=== PATIENT | female | born 1935 | race Caucasian/White ===

== ENCOUNTER → 2016-05-25 | Outpatient (CLI) | payer MEDICARE, OTHER ==
--- NOTE | 2016-05-25 11:37 | MAM ---
History: Well woman exam. Date of exam: 05/25/2016 Services provided: Bilateral full field digital screening mammography. CAD, the images were reviewed with R2 computer aided detection. FINDINGS: Glandular tissue is scattered glandular contour. Comparison with 2014 exam. No dominant mass, architectural distortion or clustered microcalcification. IMPRESSION: Benign exam Recommendation: Routine annual mammography BIRAD CATEGORY: 2 BENIGN Electronically signed by: Adelita Perez MD 05/25/2016 11:35 AM CDT
== END | disposition home or self-care (01) ==
LOC: MAMMO 08:22
PROVIDERS: ATTEND Family Medicine
DX: Z12.31 Encounter for screening mammogram for malignant neoplasm of breast (principal)

== ENCOUNTER 2016-06-19 09:03 | Emergency (ER) | payer MEDICARE, OTHER ==
[2016-06-19 09:26] VITALS: TEMP 97.3
--- NOTE | 2016-06-19 09:34 | ED.PDOC ---
History of Present Illness - General Chief Complaint: Back Pain or Injury Stated Complaint: back pain Time Seen by Provider: 06/19/16 09:18 Source: patient, RN notes reviewed, Vital Signs reviewed Exam Limitations: no limitations - History of Present Illness Initial Comments: Patient comes in with c/o low back pain. 1 week ago she had a seizure, she has a known seizure disorder, and hurt her back when she fell. The pain started in the center of her low back but now is getting worse and spreading out towards her hips. The pain is worse with bending over and laying down. She can't bend down and tie her shoes due to the pain. The pain is sharp. No weakness or numbness. No difficulty walking. No bowel or bladder incontinence. Timing/Duration: 1 week, getting worse Quality/Severity: moderate, sharpness Back Pain Location: lumbar spine, paraspinous muscles Method of Injury/Prior Injury: fell Improving Factors: nothing Worsening Factors: movement Associated Symptoms: lower back pain Allergies/Adverse Reactions: Allergies Codeine Allergy (Verified 06/19/16 09:26) Home Medications: Ambulatory Orders ALPRAZolam [Xanax] 0.5 mg PO BEDTIME 05/24/14 Aspirin [Aspirin Childrens] 81 mg PO DAILY 05/24/14 Calcium Carbonate-Cholecalcife [Calcium 500+D 500-400 mg-Unit] 1 tab PO DAILY Divalproex Sodium [Depakote] 250 mg PO TID 05/24/14 Meloxicam 7.5 mg PO DAILY 05/24/14 Probiotic Product [Probiotic] 1 tab PO DAILY 05/24/14 Ranitidine HCl 300 mg PO DAILY 05/24/14 Thiothixene 1 mg PO DAILY 05/24/14 Simvastatin [Zocor] 20 mg PO DAILY 06/19/16 Review of Systems - Review of Systems Constitutional: States: no symptoms reported Respiratory: States: no symptoms reported Cardiology: States: no symptoms reported Gastrointestinal/Abdominal: States: no symptoms reported Genitourinary: States: no symptoms reported Musculoskeletal: States: see HPI, back pain Skin: States: no symptoms reported Neurological: States: no symptoms reported, seizure. Denies: numbness, paresthesia, pre-existing deficit, tingling, weakness All other Systems: No Change from Baseline Past Medical History (General) - Patient Medical History Hx Seizures: Yes - "Not for years" Hx Stroke: No Hx Dementia: No Hx Asthma: No Hx of COPD: No Hx Cardiac Disorders: No Hx Congestive Heart Failure: No Hx Pacemaker: No Hx Hypertension: No Hx Thyroid Disease: No Hx Diabetes: No Hx Gastroesophageal Reflux: Yes Hx Renal Disease: No Hx Cancer: No Hx of HIV: No Hx Hepatitis C: No Hx MRSA: No Surgical History: cholecystectomy, Hysterectomy, other - Vaccination History Hx Tetanus, Diphtheria Vaccination: No Hx Influenza Vaccination: No Hx Pneumococcal Vaccination: No - Social History Hx Tobacco Use: No Hx Alcohol Use: No Hx Substance Use: No Hx Substance Use Treatment: No Hx Depression: No - Activities of Daily Living Hospice Agency (if applicable):: None - Female History Patient is a Female of Child Bearing Age (10 -59 yrs old): No Patient : No Family Medical History - Family History Mother Family History: No Known Living Status: Age at (years of age): 54 Cause of : colon CA Hx Family Cancer: Yes Physical Exam - Physical Exam General Appearance: Alert, Comfortable, No apparent distress, Well Developed, Well Groomed, Well Hydrated, Well Nourished Neck Exam: non-tender, full range of motion, normal alignment, normal inspection Back Exam: no CVA tenderness, no vertebral tenderness, decreased range of motion - due to pain, muscle spasm - Bilateral lower lumbar R>L Extremity Exam: no evidence of injury, normal range of motion, non-tender, no pedal edema Neurologic: no motor/sensory deficits, alert, normal mood/affect, oriented x 3 Skin Exam: normal color, warm/dry Comments: Vital Signs - 24 hr 06/19/16 09:10 Temperature 97.3 F L Pulse Rate [ 59 L pulse ox] Respiratory 20 Rate Blood Pressure 147/75 [Left Arm] O2 Sat by Pulse 97 Oximetry Progress - Progress Progress: 06/19/16 10:09 Discussed with patient trying a muscle relaxer while waiting for radiology report. If it helps I can write her a script for it at home. She is agreeable. 06/19/16 10:59 Patient is doing well. She is not interested in an Rx for home. She also is not interested in doing anything about her compression fracture. It probably occurred 8 days ago. She is neurologically intact. She wants to just use Tylenol at home as needed for pain. - EKG/XRAY/CT XRAY: L spine: Mod sized compression fracture of L2, age indeterminate per radiologist Departure - Departure Clinical Impression: Compression fracture of second lumbar vertebra Time of Disposition: 11:01 Disposition: Discharge to Home or Self Care Condition: Good Departure Forms: ED Discharge - Pt. Copy, Patient Portal Self Enrollment Instructions: DI for Vertebral Fracture Diet: resume usual diet Activity: increase activity as tolerated Referrals: Devaughn Malcolm MD [Primary Care Provider] - 1-2 Weeks Home Medications: Ambulatory Orders ALPRAZolam [Xanax] 0.5 mg PO BEDTIME 05/24/14 Aspirin [Aspirin Childrens] 81 mg PO DAILY 05/24/14 Calcium Carbonate-Cholecalcife [Calcium 500+D 500-400 mg-Unit] 1 tab PO DAILY Divalproex Sodium [Depakote] 250 mg PO TID 05/24/14 Meloxicam 7.5 mg PO DAILY 05/24/14 Probiotic Product [Probiotic] 1 tab PO DAILY 05/24/14 Ranitidine HCl 300 mg PO DAILY 05/24/14 Thiothixene 1 mg PO DAILY 05/24/14 Simvastatin [Zocor] 20 mg PO DAILY 06/19/16
[2016-06-19] MEDS ORDERED: CYCLOBENZAPRINE HCL 5 MG TAB PO ONE (10:06)
--- NOTE | 2016-06-19 10:13 | RAD ---
PROCEDURE: Lumbar Spine 3 Views Clinical History: pain s/p fall 1 week ago Indication: Same as above Comparison: CT of the abdomen and pelvis done on 10/25/2014 . Technique: 3.0 views of the lumbar spine were done. Findings: There is generalized osteopenia of the bones. There is moderate size compression deformity involving the L2 vertebra, age indeterminate, the acuteness of which can be better assessed on an MRI examination There is no evidence of spondylolisthesis in the lumbosacral spine. There is reduction in the intervertebral disc space height at L5/S1 level There is levoscoliotic curvature of the lumbar spine The thoracolumbar and the lumbosacral junction are intact. The visualized portions of the bilateral sacroiliac joints are unremarkable. The paravertebral soft tissues are radiographically unremarkable. The posterior elements are normal. There is no visualization of any radiopaque foreign bodies in the soft tissues. The findings were discussed with Dr. Hawkins, from the ER service at 10:12 AM Impression: There is generalized osteopenia of the bones. There is moderate size compression deformity involving the L2 vertebra, age indeterminate, the acuteness of which can be better assessed on an MRI examination Location of Interpretation: Teleradiology Electronically signed by: Cyrus Bauman MD 06/19/2016 10:13 AM CDT
[2016-06-19 11:11] VITALS: BP 148/75; O2SAT 100
== END 2016-06-19 11:12 | disposition home or self-care (01) ==
LOC: ER 09:03
DX: S32.029A Unspecified fracture of second lumbar vertebra, initial encounter for closed fracture (principal); K21.9 Gastro-esophageal reflux disease without esophagitis; G40.909 Epilepsy, unspecified, not intractable, without status epilepticus; Z79.899 Other long term (current) drug therapy; Z88.6 Allergy status to analgesic agent; Z79.82 Long term (current) use of aspirin; W19.XXXA Unspecified fall, initial encounter; Y92.009 Unspecified place in unspecified non-institutional (private) residence as the place of occurrence of the external cause

== ENCOUNTER → 2016-08-23 | Outpatient (CLI) | payer MEDICARE, OTHER | LOC: GMAH 10:24 | PROVIDERS: ATTEND Family Medicine | DX: E78.2 Mixed hyperlipidemia (principal) ==

== ENCOUNTER → 2016-09-02 | Outpatient (CLI) | payer MEDICARE, OTHER ==
--- NOTE | 2016-09-05 09:04 | US ---
EXAM DESCRIPTION: Extremity,Lower Vasyl Arteries CLINICAL HISTORY: 80 years Female, ATHEROSCLEROSIS OF [place] ARTERIES OF EXT WITH INTERMITTENT ANASTASIIA COMPARISON: None. TECHNIQUE: Bilateral arterial lower extremity duplex examination with grayscale, color Doppler, and spectral pulse Doppler evaluation. FINDINGS: On the right widely patent vessels with normal velocities and normal triphasic flow is noted in the common femoral and multiple locations in the right superficial femoral artery with the flow becoming biphasic flow noted at the popliteal artery with mildly dampened peak velocities of 45 cm/s but no high-grade stenosis identified. Normal biphasic flow in normal velocities in the peroneal and posterior tibial artery are noted with dampened velocities but normal-appearing biphasic flow in the dorsalis pedis vessel. Infrapopliteal anterior tibial and dorsalis pedis disease with a normal flow pattern in the posterior tibial is suspected. On the left, a normal-appearing vessel with triphasic flow in normal velocities at the common femoral and triphasic flow in the superficial femoral artery with normal velocities in multiple locations is present and preserved through the popliteal. Biphasic flow in the peroneal and dorsalis pedis artery with dampened velocities in the dorsalis pedis is present with normal triphasic waveform evident in the posterior tibial artery with normal velocities of 84 cm/s. IMPRESSION: 1. Dampened velocities but relatively normal appearing biphasic flow in each dorsalis pedis vessel suggesting infrapopliteal stenotic disease in this distribution but normal flow and velocities in the posterior tibial artery on each side. 2. No evidence of inflow disease with normal triphasic flow to the distal SFA on the right and the popliteal artery on the left. Electronically signed by: Rodolfo Alejandro MD 09/05/2016 9:02 AM CDT
--- NOTE | 2016-09-05 09:06 | US ---
EXAM DESCRIPTION: Venous,Lower Extremity RT CLINICAL HISTORY: EDEMA COMPARISON: None Available. TECHNIQUE: Right lower extremity venous duplex FINDINGS: There is no DVT identified. There is normal color flow observed with good flow augmentation. All deep veins compress normally. IMPRESSION: Negative for DVT Electronically signed by: Rodolfo Alejandro MD 09/05/2016 9:04 AM CDT
--- NOTE | 2016-09-05 09:07 | US ---
EXAM DESCRIPTION: Venous,Lower Extremity LT CLINICAL HISTORY: EDEMA COMPARISON: None Available. TECHNIQUE: Left lower extremity venous duplex FINDINGS: There is no DVT identified. There is normal color flow observed with good flow augmentation. All deep veins compress normally. IMPRESSION: Negative for DVT Electronically signed by: Rodolfo Alejandro MD 09/05/2016 9:06 AM CDT
== END | disposition home or self-care (01) ==
LOC: US 08:07
PROVIDERS: ATTEND Family Medicine
DX: R60.9 Edema, unspecified (principal); I70.213 Atherosclerosis of native arteries of extremities with intermittent claudication, bilateral legs

== ENCOUNTER → 2016-09-27 | Outpatient (CLI) | payer MEDICARE, OTHER ==
--- NOTE | 2016-09-27 14:44 | US ---
EXAM DESCRIPTION: Thyroid CLINICAL HISTORY: 80 years Female, ABN THYROID FUNCTION COMPARISON: None. FINDINGS: Thyroid gland is symmetric and small and normal in size with the right lobe 3.8 x 1.5 x 1.5 cm and the left lobe 3.8 x 1.4 x 1.7 cm with the isthmus 2 mm in thickness. Gland is slightly heterogeneous with multiple bilateral hypoechoic nodules noted. On the right a hypoechoic 6 x 5 x 4 mm nodule in the lower pole with a solitary focal 2 mm echogenic nodule internally is present consistent with a small hypoechoic nodule. Additional 4 x 4 by 3 mm nodule in the mid right lobe of the thyroid that is hypoechoic is noted. On the left, a wider than tall 7 x 6 x 5 mm cyst in the mid thyroid is noted. No additional hypoechoic nodule in the lower pole measuring 6 x 4 x 5 mm is present and nonspecific. No dominant masses are noted. IMPRESSION: Normal-sized thyroid with small less than 1 cm hypoechoic nodules and cysts bilaterally that require no further workup at this time. Electronically signed by: Rodolfo Alejandro MD 09/27/2016 2:43 PM CDT
== END | disposition home or self-care (01) ==
LOC: US 08:09
PROVIDERS: ATTEND Family Medicine
DX: R94.6 Abnormal results of thyroid function studies (principal)

== ENCOUNTER → 2016-12-07 | Outpatient (CLI) | payer MEDICARE, OTHER | LOC: GMAH 15:03 | PROVIDERS: ATTEND Family Medicine | DX: R56.9 Unspecified convulsions (principal) ==

== ENCOUNTER → 2017-06-19 | Outpatient (CLI) | payer MEDICARE, OTHER | LOC: GMAH 10:59 | PROVIDERS: ATTEND Family Medicine | DX: R56.9 Unspecified convulsions (principal) ==

== ENCOUNTER → 2017-10-17 | Outpatient (CLI) | payer MEDICARE, OTHER | LOC: GMAH 10:53 | PROVIDERS: ATTEND Family Medicine | DX: R53.1 Weakness (principal) ==

== ENCOUNTER 2017-12-04 16:46 | Emergency (ER) | payer MEDICARE, OTHER ==
[2017-12-04] MEDS ORDERED: POTASSIUM CHLORIDE ELIXIR 20 MEQ/15 ML UD PO ONE (17:38)
--- NOTE | 2017-12-04 17:55 | RAD ---
EXAM DESCRIPTION: Abdomen Series CLINICAL HISTORY: nvd, dizziness COMPARISON: CT the abdomen dated 15 January 2016 TECHNIQUE: PA chest with supine and upright views of the abdomen] FINDINGS: The lungs are clear. The heart is normal size. There is an unremarkable bowel gas pattern. There is no mass or calculus. Markers from a left lower quadrant hernia repair observed IMPRESSION: Left lower quadrant hernia repair otherwise unremarkable abdomen. Electronically signed by: Justen Lyles MD 12/04/2017 5:54 PM CDT
--- NOTE | 2017-12-04 18:06 | CT ---
PROCEDURE: Head CLINICAL HISTORY: 81 years Female nvd, dizziness, afib new COMPARISON: 11/02/2015. TECHNIQUE: Contiguous axial images obtained through the brain without IV contrast. This exam was performed according to our department optimization program which includes automated exposure control, adjustment of the mA and/or kv according to patient size and/or use of iterative reconstruction technique. FINDINGS: The ventricles and sulci are prominent consistent with atrophic changes. No mass lesions. No acute hemorrhage. Atherosclerotic calcifications. Mild microvascular ischemic changes. No fluid or significant mucosal thickening in the visualized paranasal sinuses. No depressed calvarial fractures. IMPRESSION: No acute intracranial abnormality is identified. If there is clinical concern for the possibility of acute ischemic change, MRI could be obtained to better evaluate. Electronically signed by: Tomi Chacko MD 12/04/2017 6:05 PM CDT
--- NOTE | 2017-12-04 19:14 | CT ---
EXAM DESCRIPTION: CTA Chest CLINICAL HISTORY: 81 years, Female, ddimer, new afib, sob COMPARISON: None. TECHNIQUE: Axial images through the chest were performed after the administration of intravenous contrast using a pulmonary embolus protocol. MIPS were performed. This exam was performed according to our departmental dose-optimization program which includes use of Automated Exposure Control, adjustment of the mA and/or kV according to patient size and/or use of iterative reconstruction technique. FINDINGS: No pulmonary embolus is identified. Nonaneurysmal aorta with scattered atherosclerotic calcifications. No pericardial effusion. No pleural effusion. Subsegmental atelectasis within the dependent lungs. No focal lung consolidation. No pneumothorax. Patent central airway. Soft tissues are unremarkable. No acute osseous findings. No acute abnormality within the visualized upper abdomen. IMPRESSION: No pulmonary embolus. Electronically signed by: Willy Durand MD 12/04/2017 7:12 PM CDT
--- NOTE | 2017-12-04 19:33 | CT ---
EXAM DESCRIPTION: Abdomen/Pelvis w/Contrast CLINICAL HISTORY: 81 years Female abd pain, hypotension, hx diverticulitis COMPARISON: None. TECHNIQUE: Contiguous axial images obtained through the abdomen and pelvis following IV contrast. Reformatted images obtained. This exam was performed according to our department optimization program which includes automated exposure control, adjustment of the mA and/or kv according to patient size and/or use of iterative reconstruction technique. FINDINGS: The study is slightly suboptimal from motion artifact and from the patient's overlying arms. Minimal scarring/atelectasis at the lung bases. The liver appears unremarkable. The spleen and pancreas appear unremarkable. No adrenal masses. Small renal cysts. No hydronephrosis. The gallbladder is visualized. Atherosclerotic calcifications. No aneurysmal dilatation of the aorta. No bowel obstruction. The appendix appears unremarkable. Colonic diverticulosis. No free pelvic fluid. Sorto catheter in the urinary bladder. Changes from hernia repair in the left lower abdomen. Mild scoliosis in the lumbar spine convex left. Degenerative changes in the spine. Old appearing compression fracture at the L2 level. IMPRESSION: No acute intra-abdominal abnormality is identified. Electronically signed by: Tomi Chacko MD 12/04/2017 7:32 PM CDT
[2017-12-04] MEDS ORDERED: METOPROLOL TARTRATE 25 MG TAB PO ONE (19:50)
[2017-12-04] MEDS ORDERED: DIVALPROEX SODIUM 250 MG TAB PO ONE (19:51)
[2017-12-04] MEDS ORDERED: ALPRAZolam 0.25 MG TAB PO ONE (19:51)
[2017-12-04] MEDS ORDERED: PROMETHAZINE HCL INJ 12.5 MG in SODIUM CHLORIDE 0.9% 50ML 50 ML IVPB ONE (19:56)
[2017-12-04] MEDS ORDERED: PROMETHAZINE HCL INJ 25 MG/ML VIAL ONE (19:57)
[2017-12-04] MEDS ORDERED: SODIUM CHLORIDE 0.9% 50ML 50 ML ONE (19:58)
--- NOTE | 2017-12-04 20:23 | ED.PDOC ---
History of Present Illness - General Chief Complaint: General Stated Complaint: weakness, n/v/d Time Seen by Provider: 12/04/17 16:58 Source: patient Exam Limitations: no limitations - History of Present Illness Initial Comments: the patient is an 81-year-old female presenting to the emergency room secondary to approximately 9 hours of nausea and vomiting related to severe dizziness. Dizziness with abrupt onset. No blood or bile in the vomitus. She did have 2 episodes of mild diarrhea without blood later in the day. There are no focal neurological deficits otherwise. She does not appear to have abnormal nystagmus but does get very dizzy with any head movement and looking around. Family reports that her speech is a little slower than normal. No difficulties with swallowing. Speech is clear. She knows where she is in what is going on. No fevers. No abdominal pain. She does feel a little bit short of breath. She is not hurting anywhere. She is not having any chest pain or palpitations. She has not passed out. She has no known history of any coronary artery disease or arrhythmia. initially upon arrival the patient's blood pressures were in the 90s over 40s. Her normals around 110/60. This did correct with 1 L of IV fluids. The patient was initially pale which should also improve with improved perfusion. Initial heart rates are in the 120s.the patient reported having some mild abdominal pain a couple of days ago down in her left lower quadrant. She has had a hernia repaired there before and has also had diverticulitis before. She is not really having pain today. Timing/Duration: other - 9 hours Severity: severe Improving Factors: nothing Worsening Factors: movement Associated Symptoms: malaise, nausea/vomiting Allergies/Adverse Reactions: Allergies Codeine Allergy (Verified 12/04/17 17:22) Home Medications: Ambulatory Orders ALPRAZolam [Xanax] 0.5 mg PO BEDTIME 05/24/14 Aspirin [Aspirin Childrens] 81 mg PO DAILY 05/24/14 Calcium Carbonate-Cholecalcife [Calcium 500+D 500-400 mg-Unit] 1 tab PO DAILY Divalproex Sodium [Depakote] 250 mg PO TID 05/24/14 Meloxicam 7.5 mg PO DAILY 05/24/14 Probiotic Product [Probiotic] 1 tab PO DAILY 05/24/14 Ranitidine HCl 300 mg PO DAILY 05/24/14 Thiothixene 1 mg PO DAILY 05/24/14 Simvastatin [Zocor] 20 mg PO DAILY 06/19/16 Lansoprazole [Prevacid] 20 mg PO DAILY 12/04/17 Multiple Vitamins W/ Minerals [Multi For Her 50+] 1 cap PO DAILY 12/04/17 Review of Systems - Review of Systems Constitutional: States: malaise EENTM: States: no symptoms reported Respiratory: States: short of breath - mild Cardiology: States: no symptoms reported Gastrointestinal/Abdominal: States: diarrhea, nausea, vomiting Genitourinary: States: no symptoms reported Musculoskeletal: States: no symptoms reported Skin: States: no symptoms reported Neurological: States: see HPI, anxiety Endocrine: States: no symptoms reported All other Systems: No Change from Baseline Past Medical History (General) - Patient Medical History Hx Seizures: Yes - "Not for years" Hx Stroke: No Hx Dementia: No Hx Asthma: No Hx of COPD: No Hx Cardiac Disorders: No Hx Congestive Heart Failure: No Hx Pacemaker: No Hx Hypertension: No Hx Thyroid Disease: Yes Hx Diabetes: Yes Hx Gastroesophageal Reflux: Yes Hx Renal Disease: No Hx Cancer: No Hx of HIV: No Hx Hepatitis C: No Hx MRSA: No - Vaccination History Hx Tetanus, Diphtheria Vaccination: No Hx Influenza Vaccination: No Hx Pneumococcal Vaccination: No - Social History Hx Tobacco Use: No Hx Alcohol Use: No Hx Substance Use: No Hx Substance Use Treatment: No Hx Depression: No - Female History Patient : No Family Medical History - Family History Mother Family History: No Known Living Status: Age at (years of age): 54 Cause of : colon CA Hx Family Cancer: Yes Physical Exam - Physical Exam General Appearance: Alert, Anxious, Frail, Ill Appearing Eye Exam: bilateral normal Ears, Nose, Throat: normal pharynx, other - chronic decreased hearing bilaterally. She does wear hearing aids. 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, alert, oriented x 3 Skin Exam: pallor Comments: Vital Signs - 24 hr 12/04/17 12/04/17 12/04/17 16:37 16:45 19:37 Temperature 97.8 F Pulse Rate [ 112 H 110 H right brachial] Respiratory 20 20 16 Rate Blood Pressure 90/49 128/78 [right brachial ] O2 Sat by Pulse 98 99 Oximetry 12/04/17 20:16 Temperature 96.7 F L Pulse Rate [ 116 H right brachial] Respiratory 16 Rate Blood Pressure 131/80 [right brachial ] O2 Sat by Pulse 100 Oximetry Progress - Progress Progress: 12/04/17 20:31 patient's an 81-year-old female presenting to the emergency room with what appears to be vertigo inducing nausea and vomiting. Source of the vertigo is in question. HINTS exam is unable to localize source to a peripheral etiology. The finding of new A. fib with RVR does increase the possibility of a posterior circulation stroke as a source of the vertigo. head CT without contrast was negative. She was mildly to moderately dehydrated upon arrival. She has received a liter of IV fluids and her blood pressures have corrected. She has received a dose of metoprolol to help lower the heart rate. She is feeling better but still has significant vertigo. She has received a dose of Phenergan which has helped some. The patient is receiving 1 dose of Lovenox for anticoagulation at this point. The patient did have a CT scan of the abdomen to help rule out a diverticulitis flare as contributing to the nausea and vomiting and she also had a CT angiogram of the chest to help rule out a pulmonary embolus given that she has new atrial fibrillation and an elevated d- dimer as well as a subjective mild shortness of breath. Both studies were essentially negative. The patient is being transferred for higher level of care for cardiology and neurology evaluation. She has also received an aspirin as well as her evening dose of Depakote and Xanax. she received a dose of oral potassium as well. 12/04/17 20:37 - Results/Orders Results/Orders: EKG shows atrial fibrillation with RVR at [address] or T wave changes consistent with immediate ischemia. She does have right axis deviation. QT interval is borderline prolonged. CT scan of the head without contrast felt show any acute pathology. CT angiogram of the chest with PE protocol feels show any significant pulmonary embolus or aortic pathology. CT of the abdomen and pelvis failed to show any other source for the nausea and vomiting. No diverticulitis. Laboratory Tests 12/04/17 12/04/17 12/04/17 16:42 16:42 16:42 WBC 7.1 RBC 4.68 Hgb 15.1 Hct 45.3 MCV 96.7 MCH 32.2 H MCHC 33.5 RDW 13.3 Plt Count 199 MPV 9.8 Absolute Neuts (auto) 5.70 Absolute Lymphs (auto) 1.00 Absolute Monos (auto) 0.40 Absolute Eos (auto) 0.00 Absolute Basos (auto) 0.00 Neutrophils % 80.1 H Lymphocytes % 14.0 L Monocytes % 5.5 Eosinophils % 0.1 L Basophils % 0.3 PT 9.4 INR 0.94 PTT (SP) 21.8 D-Dimer, Quantitative 0.73 H* Sodium 139 Potassium 3.2 L Chloride 101 Carbon Dioxide 24 Anion Gap 17.2 BUN 19 H Creatinine 0.74 BUN/Creatinine Ratio 25.7 H Random Glucose 155 H Serum Osmolality 282.9 Lactic Acid Calcium 10.0 Magnesium 1.9 Total Bilirubin 0.5 AST 28 ALT 16 Alkaline Phosphatase 65 Creatine Kinase 90 CK-MB (CK-2) 4.3 CK-MB (CK-2) % Not Reportable Troponin I < 0.02 B-Natriuretic Peptide 128.0 H Serum Total Protein 8.0 Albumin 4.2 Globulin 3.8 H Albumin/Globulin Ratio 1.1 Amylase 32 Lipase 23 TSH 2.50 Urine Color Urine Appearance Urine pH Ur Specific [place] Urine Protein Urine Glucose (UA) Urine Ketones Urine Blood Urine Nitrite Urine Bilirubin Urine Urobilinogen Ur Leukocyte Esterase Urine RBC Urine WBC Ur Epithelial Cells Amorphous Sediment Urine Bacteria 12/04/17 12/04/17 17:11 18:33 WBC RBC Hgb Hct MCV MCH MCHC RDW Plt Count MPV Absolute Neuts (auto) Absolute Lymphs (auto) Absolute Monos (auto) Absolute Eos (auto) Absolute Basos (auto) Neutrophils % Lymphocytes % Monocytes % Eosinophils % Basophils % PT INR PTT (SP) D-Dimer, Quantitative Sodium Potassium Chloride Carbon Dioxide Anion Gap BUN Creatinine BUN/Creatinine Ratio Random Glucose Serum Osmolality Lactic Acid 2.2 Calcium Magnesium Total Bilirubin AST ALT Alkaline Phosphatase Creatine Kinase CK-MB (CK-2) CK-MB (CK-2) % Troponin I B-Natriuretic Peptide Serum Total Protein Albumin Globulin Albumin/Globulin Ratio Amylase Lipase TSH Urine Color Yellow Urine Appearance Sl cloudy Urine pH 8.0 H Ur Specific [place] 1.015 Urine Protein Negative Urine Glucose (UA) Negative Urine Ketones 40 H Urine Blood Small H Urine Nitrite Negative Urine Bilirubin Negative Urine Urobilinogen 0.2 Ur Leukocyte Esterase Negative Urine RBC 1-3 Urine WBC 0 Ur Epithelial Cells 0-1 Amorphous Sediment 1+ Urine Bacteria 0 Departure - Departure Clinical Impression: Vertigo, Dehydration, Atrial fibrillation with RVR, Hypokalemia Disposition: Transfer to Hospital Referrals: Devaughn Malcolm MD [Primary Care Provider] - 1-2 Weeks Home Medications: Ambulatory Orders ALPRAZolam [Xanax] 0.5 mg PO BEDTIME 05/24/14 Aspirin [Aspirin Childrens] 81 mg PO DAILY 05/24/14 Calcium Carbonate-Cholecalcife [Calcium 500+D 500-400 mg-Unit] 1 tab PO DAILY Divalproex Sodium [Depakote] 250 mg PO TID 05/24/14 Meloxicam 7.5 mg PO DAILY 05/24/14 Probiotic Product [Probiotic] 1 tab PO DAILY 05/24/14 Ranitidine HCl 300 mg PO DAILY 05/24/14 Thiothixene 1 mg PO DAILY 05/24/14 Simvastatin [Zocor] 20 mg PO DAILY 06/19/16 Lansoprazole [Prevacid] 20 mg PO DAILY 12/04/17 Multiple Vitamins W/ Minerals [Multi For Her 50+] 1 cap PO DAILY 12/04/17 Transfer to Outside Facility - Transfer Information Accepting Provider:: dr graham Accepting Facility: [facility] Reason for Transfer: required specialist not available
[2017-12-04] MEDS ORDERED: ENOXAPARIN SODIUM 100 MG/ML SYG SUBCU ONE (20:36)
[2017-12-04 21:03] VITALS: BP 139/89; O2SAT 97
[2017-12-04 22:17] VITALS: TEMP 97.7
== END 2017-12-04 21:45 | disposition short-term general hospital (02) ==
LOC: ER 16:46
DX: E86.0 Dehydration (principal); E87.6 Hypokalemia; R00.0 Tachycardia, unspecified; R42 Dizziness and giddiness; I48.91 Unspecified atrial fibrillation; R11.2 Nausea with vomiting, unspecified; E07.9 Disorder of thyroid, unspecified; E11.9 Type 2 diabetes mellitus without complications; K21.9 Gastro-esophageal reflux disease without esophagitis; Z79.82 Long term (current) use of aspirin; Z79.899 Other long term (current) drug therapy; Z88.5 Allergy status to narcotic agent
CPT/HCPCS: 36415; 70450; 71275; 74019; 74177; 80053; 81001; 82150; 82550; 82553; 83605; 83690; 83735; 83880; 84443; 84484; 85025; 85379; 85610; 85730; 93005; A4216; J1650; J2550

== ENCOUNTER 2017-12-31 14:49 | Emergency (ER) | payer MEDICARE, OTHER ==
--- NOTE | 2017-12-31 15:24 | ED.PDOC ---
History of Present Illness - General Chief Complaint: Trauma Stated Complaint: fall with leg pain Time Seen by Provider: 12/31/17 15:20 Source: patient, family - History of Present Illness Initial Comments: FELL OFF HER BED MISA. NOW C/O PAIN TO HER LEFT HIP AND HER BACK, FEELS WEAK AND NOW C/O HAVING PROBLEMS TO WALK. SHE HAS SEIZURE DISORDER AND RECENTLY HAD NEW ONSET AF THAT RESOLVED WITH MEDICATIONS. Timing/Duration: 24 hours Severity: moderate Improving Factors: nothing Worsening Factors: nothing Associated Symptoms: denies symptoms Allergies/Adverse Reactions: Allergies Codeine Adverse Reaction (Unknown, Verified 12/31/17 15:15) Nausea Home Medications: Ambulatory Orders ALPRAZolam [Xanax] 0.5 mg PO BEDTIME 05/24/14 Aspirin [Aspirin Childrens] 81 mg PO DAILY 05/24/14 Calcium Carbonate-Cholecalcife [Calcium 500+D 500-400 mg-Unit] 1 tab PO DAILY Divalproex Sodium [Depakote] 250 mg PO TID 05/24/14 Meloxicam 7.5 mg PO DAILY 05/24/14 Probiotic Product [Probiotic] 1 tab PO DAILY 05/24/14 Ranitidine HCl 300 mg PO DAILY 05/24/14 Thiothixene 1 mg PO DAILY 05/24/14 Simvastatin [Zocor] 20 mg PO DAILY 06/19/16 Lansoprazole [Prevacid] 20 mg PO DAILY 12/04/17 Multiple Vitamins W/ Minerals [Multi For Her 50+] 1 cap PO DAILY 12/04/17 Review of Systems - Review of Systems Constitutional: States: no symptoms reported EENTM: States: no symptoms reported Respiratory: States: no symptoms reported Cardiology: States: no symptoms reported Gastrointestinal/Abdominal: States: no symptoms reported Genitourinary: States: no symptoms reported Musculoskeletal: States: joint pain Skin: States: no symptoms reported Neurological: States: weakness Endocrine: States: no symptoms reported Hematologic/Lymphatic: States: no symptoms reported Past Medical History (General) - Patient Medical History Hx Seizures: Yes - "Not for years" Hx Stroke: No Hx Dementia: No Hx Asthma: No Hx of COPD: No Hx Cardiac Disorders: No Hx Congestive Heart Failure: No Hx Pacemaker: No Hx Hypertension: No Hx Thyroid Disease: Yes Hx Diabetes: Yes Hx Gastroesophageal Reflux: Yes Hx Renal Disease: No Hx Cancer: No Hx of HIV: No Hx Hepatitis C: No Hx MRSA: No Surgical History: tonsillectomy, Hysterectomy, other - Vaccination History Hx Tetanus, Diphtheria Vaccination: No Hx Influenza Vaccination: Yes Hx Pneumococcal Vaccination: Yes - Social History Hx Tobacco Use: No Hx Alcohol Use: No Hx Substance Use: No Hx Substance Use Treatment: No Hx Depression: No - Female History Patient : No Family Medical History - Family History Mother Family History: No Known Living Status: Age at (years of age): 54 Cause of : colon CA Hx Family Cancer: Yes Physical Exam - Physical Exam General Appearance: Alert, No apparent distress, Well Developed, Well Hydrated, Well Nourished Eye Exam: bilateral normal Ears, Nose, Throat: hearing grossly normal Neck: non-tender, full range of motion, supple Respiratory: chest non-tender, lungs clear, normal breath sounds, no respiratory distress, no accessory muscle use Cardiovascular/Chest: normal peripheral pulses, regular rate, rhythm, no edema, no gallop, no JVD Peripheral Pulses: radial,right: 2+, radial,left: 2+ Gastrointestinal/Abdominal: normal bowel sounds, non tender, soft, no organomegaly, no pulsatile mass Rectal Exam: deferred Back Exam: normal inspection, no CVA tenderness, no vertebral tenderness Extremity: other - LIMITED ROM, SHE IS ABLE TO MOVE BOTH LEGS BUT SEEMS WEAK Neurologic: no motor/sensory deficits, alert, oriented x 3 Skin Exam: normal color Progress - Progress Progress: 12/31/17 18:18 12/31/17 15:30 EKG STAT 12/31/17 17:30 URINE CULTURE W/COLONY COUNT Stat Laboratory Results WBC 6.2 K/mm3 (4.8-10.8) 12/31/17 15:37 RBC 3.94 M/mm3 (4.20-5.40) L 12/31/17 15:37 Hgb 12.8 gm/dL (12.0-16.0) 12/31/17 15:37 Hct 38.2 % (36.0-47.0) 12/31/17 15:37 MCV 96.8 fl (81.0-99.0) 12/31/17 15:37 MCH 32.4 pg (27.0-31.0) H 12/31/17 15:37 MCHC 33.6 g/dL (33.0-37.0) 12/31/17 15:37 RDW 13.7 % (11.5-14.5) 12/31/17 15:37 Plt Count 166 K/mm3 (130-400) 12/31/17 15:37 MPV 9.4 fl (7.40-10.4) 12/31/17 15:37 Absolute Neuts (auto) 3.80 K/uL (1.8-6.8) 12/31/17 15:37 Absolute Lymphs (auto) 1.30 K/uL (1.0-3.4) 12/31/17 15:37 Absolute Monos (auto) 0.90 K/uL (0.2-0.8) H 12/31/17 15:37 Absolute Eos (auto) 0.10 K/uL (0.0-0.4) 12/31/17 15:37 Absolute Basos (auto) 0.00 K/uL (0.0-0.1) 12/31/17 15:37 Neutrophils % 61.1 % (42.0-78.0) 12/31/17 15:37 Lymphocytes % 21.9 % (20.0-50.0) 12/31/17 15:37 Monocytes % 14.4 % (2.0-9.0) H 12/31/17 15:37 Eosinophils % 1.9 % (1.0-5.0) 12/31/17 15:37 Basophils % 0.7 % (0.0-2.0) 12/31/17 15:37 Sodium 136 mmol/L (135-145) 12/31/17 15:37 Potassium 3.5 mmol/L (3.6-5.0) L 12/31/17 15:37 Chloride 101 mmol/L (101-111) 12/31/17 15:37 Carbon Dioxide 27 mmol/L (21-31) 12/31/17 15:37 Anion Gap 11.5 (12-18) L 12/31/17 15:37 BUN 18 mg/dL (7-18) 12/31/17 15:37 Creatinine 0.89 mg/dL (0.6-1.3) 12/31/17 15:37 BUN/Creatinine Ratio 20.2 (10-20) H 12/31/17 15:37 Random Glucose 162 mg/dL (70-105) H 12/31/17 15:37 Serum Osmolality 277.4 mOsm/L (275-295) 12/31/17 15:37 Calcium 8.8 mg/dL (8.4-10.2) 12/31/17 15:37 Total Bilirubin 0.2 mg/dL (0.2-1.0) 12/31/17 15:37 AST 24 IU/L (10-42) 12/31/17 15:37 ALT 15 IU/L (10-60) 12/31/17 15:37 Alkaline Phosphatase 65 IU/L (42-121) 12/31/17 15:37 Serum Total Protein 6.8 gm/dL (6.4-8.2) 12/31/17 15:37 Albumin 3.4 g/dl (3.2-5.5) 12/31/17 15:37 Globulin 3.4 gm/dL (2.3-3.5) 12/31/17 15:37 Albumin/Globulin Ratio 1.0 (1.1-1.9) L 12/31/17 15:37 Urine Color Yellow (Yellow) 12/31/17 17:30 Urine Appearance Sl cloudy (Clear) 12/31/17 17:30 Urine pH 5.5 (4.5-7.8) 12/31/17 17:30 Ur Specific [place] <= 1.005 (1.005-1.030) 12/31/17 17:30 Urine Protein Negative mg/dL 12/31/17 17:30 Urine Glucose (UA) Negative mg/dL (Negative) 12/31/17 17:30 Urine Ketones Negative mg/dL (NEGATIVE) 12/31/17 17:30 Urine Blood Moderate (Negative) H 12/31/17 17:30 Urine Nitrite Negative 12/31/17 17:30 Urine Bilirubin Negative (NEGATIVE) 12/31/17 17:30 Urine Urobilinogen 0.2 mg/dL (0.2-1.0) 12/31/17 17:30 Ur Leukocyte Esterase Small (Negative) H 12/31/17 17:30 Urine RBC 3-5 /hpf H 12/31/17 17:30 Urine WBC 1-3 /hpf 12/31/17 17:30 Ur Epithelial Cells 5-10 /hpf 12/31/17 17:30 Urine Bacteria Rare 11/25/18 17:30 Valproic Acid 60.7 ug/mL (50-100) 12/31/17 15:37 - Results/Orders Results/Orders: CT BRAIN WAS NEGATIVE FOR CVA X RAYS OF THE PELVIS AND LEFT HIP ARE NEGATIVE. X-RAYS OF THE LUMBAR SPINE: OLD COMPRESSION FX L2 Departure - Departure Clinical Impression: Lumbar strain Qualifiers: Encounter type: initial encounter Qualified Code(s): S39.012A - Strain of muscle, fascia and tendon of lower back, initial encounter Time of Disposition: 18:20 Disposition: Discharge to Home or Self Care Condition: Good Departure Forms: ED Discharge - Pt. Copy, Patient Portal Self Enrollment Instructions: DI for Trauma Diet: resume usual diet Activity: ambulate only with walker Referrals: Devaughn Malcolm MD [Primary Care Provider] - 1-2 Weeks Home Medications: Ambulatory Orders ALPRAZolam [Xanax] 0.5 mg PO BEDTIME 05/24/14 Aspirin [Aspirin Childrens] 81 mg PO DAILY 05/24/14 Calcium Carbonate-Cholecalcife [Calcium 500+D 500-400 mg-Unit] 1 tab PO DAILY Divalproex Sodium [Depakote] 250 mg PO TID 05/24/14 Meloxicam 7.5 mg PO DAILY 05/24/14 Probiotic Product [Probiotic] 1 tab PO DAILY 05/24/14 Ranitidine HCl 300 mg PO DAILY 05/24/14 Thiothixene 1 mg PO DAILY 05/24/14 Simvastatin [Zocor] 20 mg PO DAILY 06/19/16 Lansoprazole [Prevacid] 20 mg PO DAILY 12/04/17 Multiple Vitamins W/ Minerals [Multi For Her 50+] 1 cap PO DAILY 12/04/17 Additional Instructions: PHYSICAL THERAPY IS A GOOD IDEA.
--- NOTE | 2017-12-31 16:14 | RAD ---
PROCEDURE: Pelvis Clinical History: FALL PELVIS PAIN Indication: Same as above Comparison: None . Technique: Single frontal view of the pelvis Findings: There is no evidence of acute fractures or dislocations involving the bones of the pelvis including the bilateral hip joints, the visualized proximal femora and the sacrum. There is no evidence of periosteal reactions involving the pelvic bones. The joint spaces of the pelvis are relatively well-maintained. The visualized portion of the lower lumbar spine shows moderate amount of degenerative change degenerative change. The soft tissues are radiographically unremarkable. Impression: Negative for acute bony trauma involving the pelvis Place of interpretation: [id number]. Electronically signed by: Cyrus Bauman MD 12/31/2017 4:13 PM [facility] Workstation: [employer]
--- NOTE | 2017-12-31 16:16 | RAD ---
EXAM DESCRIPTION: Chest,1 View CLINICAL HISTORY: SOB COMPARISON: None. FINDINGS: Cardiac silhouette is within normal limits. There is no focal parenchymal or pleural disease. Visualized osseous structures are within normal limits. IMPRESSION: No evidence of acute cardiopulmonary disease. Electronically signed by: Bartolo Beatty 12/31/2017 4:14 PM [facility]
--- NOTE | 2017-12-31 16:16 | CT ---
PROCEDURE: Head HISTORY: LEFT LEG WEAKNESS Indication: Same as above Comparison: None Technique: CT of the head was done without intravenous contrast was done in the orthogonal planes. This exam was performed according to our departmental dose-optimization program, which includes automated exposure control, adjustment of the mA and/or KV according to the patient's size and/or use of iterative reconstruction technique. FINDINGS: There is no intracranial hemorrhage, midline shift mass effect or acute focal infarct. There is prominence of the sylvian fissures and the cortical sulci reflecting age related volume loss. There is periventricular and deep white matter low attenuation, most likely related to small vessel white matter ischemic disease. Intracranial atherosclerotic vascular wall calcifications are seen. If clinical concern exists regarding an acute ischemic/vascular pathology being responsible for patient's symptomatology, an MRI of the brain is more sensitive than the current study, in ruling out such a possibility. There is good corbett/white matter differentiation. The ventricular system is normal. The mastoid air cells are unremarkable . The paranasal sinuses are unremarkable . There is no visualization of acute fractures involving the calvarium or the skull base. IMPRESSION: There is no acute intracranial abnormality. Age related and chronic involutional changes are seen. Electronically signed by: Cyrus Bauman MD 12/31/2017 4:14 PM [facility] Workstation: [id number]
--- NOTE | 2017-12-31 16:17 | RAD ---
EXAM DESCRIPTION: Hip,Left 2 Views CLINICAL HISTORY: FALL PELVIS PAIN COMPARISON: None FINDINGS: 2 view(s) submitted. No fracture or dislocation is identified. Bone marrow attenuation is unremarkable. Metallic coils project over the left lower abdomen. There is moderate stool. No evidence of bowel obstruction. IMPRESSION: No acute fracture or dislocation. Electronically signed by: Bartolo Beatty 12/31/2017 4:15 PM [employer]
--- NOTE | 2017-12-31 16:19 | RAD ---
EXAM DESCRIPTION: Lumbar Spine 3 Views CLINICAL HISTORY: FALL PELVIS PAIN COMPARISON: 06/19/2016 FINDINGS: 3 view(s) submitted. There are degenerative changes with mild leftward scoliosis. Metallic coils project over the left lower abdomen. There is moderate stool in the colon. No evidence of bowel obstruction. There is moderate height loss of the L2 vertebral body with no displaced bone fracture fragments. This could be entirely chronic but appears mildly progressed compared to the prior exam. There is aortic calcification. No definite acute fracture or dislocation is identified. Bone marrow attenuation is unremarkable. IMPRESSION: Interval progression of height loss of L2 could be entirely chronic but has progressed since the prior exam. If more definitive evaluation is desired and the patient is a candidate, MRI would be more specific for acute marrow edema. No other definite acute fracture. Electronically signed by: Bartolo Beatty 12/31/2017 4:18 PM [facility]
[2017-12-31 18:49] VITALS: BP 150/73; TEMP 97.9; O2SAT 99
== END 2017-12-31 18:50 | disposition home or self-care (01) ==
LOC: ER 14:49
DX: S39.012A Strain of muscle, fascia and tendon of lower back, initial encounter (principal); M25.552 Pain in left hip; R53.1 Weakness; G40.909 Epilepsy, unspecified, not intractable, without status epilepticus; E07.9 Disorder of thyroid, unspecified; E11.9 Type 2 diabetes mellitus without complications; K21.9 Gastro-esophageal reflux disease without esophagitis; Z79.899 Other long term (current) drug therapy; Z88.5 Allergy status to narcotic agent; Z79.82 Long term (current) use of aspirin; W06.XXXA Fall from bed, initial encounter

== ENCOUNTER → 2018-07-16 | Outpatient (CLI) | payer MEDICARE, OTHER | LOC: GMAH 10:47 | PROVIDERS: ATTEND Family Medicine | DX: R56.9 Unspecified convulsions (principal); E78.2 Mixed hyperlipidemia ==

== ENCOUNTER → 2018-07-20 | Outpatient (CLI) | payer MEDICARE, OTHER ==
--- NOTE | 2018-07-20 15:51 | CT ---
EXAM DESCRIPTION: Head CLINICAL HISTORY: WEAKNESS COMPARISON: Previous study December 31, 2017 TECHNIQUE: Noncontrast head CT was performed with routine protocol. FINDINGS: Normal corbett-white matter differentiation. Ventricles and sulci are prominent consistent with age-related cerebral volume loss. No high density hemorrhage, focal edema or shift of the midline. No sulcal effacement. Normal orbital contents. Basilar cisterns appear clear. Intact calvarium with no fracture or lytic lesion. Normal aeration of tympanic cavities and mastoid air cells. No fluid levels in the paranasal sinuses. Skull base appears intact. Symmetrical internal auditory canals. IMPRESSION: No acute intracranial pathologic process. This exam was performed according to our departmental dose-optimization program, which includes automated exposure control, adjustment of the mA and/or kV according to patient size and/or use of iterative reconstruction technique. Total DLP equals 859.97 mGycm. Electronically signed by: David Martins MD 07/20/2018 3:49 PM CDT
--- NOTE | 2018-07-20 15:51 | RAD ---
3 radiographs left wrist Indication: WRIST PN Comparison: April 19, 2012 Impression: Prior ORIF of a distal radial fracture which appears healed. The second ulnar most screw tip closely approximates the distal articular surface of the radius with minimal surrounding lucency. Slight cortical breach may be present. No acute fracture. 3 mm negative ulnar variance. Minimal chondrocalcinosis of the TFC. No acute fracture identified. If there is persistent anatomic snuffbox tenderness, repeat wrist imaging to include a scaphoid view is recommended in one week to evaluate for occult scaphoid fracture. Electronically signed by: Gary Bangura MD 07/20/2018 3:48 PM CDT
== END ==
LOC: LAB.O 14:52
PROVIDERS: ATTEND Nurse Practitioner Family
DX: M25.532 Pain in left wrist (principal); R30.0 Dysuria; R53.1 Weakness; Z87.81 Personal history of (healed) traumatic fracture

== ENCOUNTER 2018-08-24 05:37 | Day surgery (SDC) | payer MEDICARE, OTHER ==
[2018-08-24] MEDS ORDERED: LACTATED RINGERS 1,000 ML ONE (06:53)
[2018-08-24] MEDS ORDERED: PROPOFOL 200 MG/20 ML VIAL IV ONE (07:00)
[2018-08-24] MEDS ORDERED: LIDOCAINE 1% 10 ML VIAL INJ ONE (07:00)
[2018-08-24 10:20] VITALS: BP 140/59; TEMP 97.4; O2SAT 100
--- NOTE | 2018-08-31 14:48 | OP ---
DATE OF PROCEDURE: 08/24/18 POSTOPERATIVE DIAGNOSIS: 1. Gastritis. 2. History of esophageal dysmotility. 3. Significant dysphagia. 4. Benign appearing gastric polyps. 5. Gastritis. PROCEDURE PERFORMED: 1. EGD with biopsy times 2. SURGEON: Jam Benz MD. ANESTHESIA: General IV. INDICATION: This is an 82-year-old woman with a history of gastric reflux, dysphagia and esophageal obstruction. She had had an EGD last September of 2017 where she was found to have a Schatzki's ring and dilation was performed. She was also felt to have dysmotility esophagus. She presented with worsening of symptoms of reflux, pain and worsening dysphagia with more phlegm in the mouth and some regurgitation, so she is counseled for repeat endoscopy to evaluate for esophageal stricture, esophagitis and her stomach as well. PROCEDURE: Once adequate sedation was given, she was in the lateral position with a bite block in place. The endoscope was gently inserted. The cricopharyngeus appeared normal. The esophagus was intubated and the sphincter was open with no evidence of active inflammation or Blankenship's. I did not notice a residual Schatzki's ring. The stomach was examined all the way to the second portion of the duodenum and there were no abnormalities in the duodenum. The stomach showed evidence of mild gastritis, so biopsy was taken at the antrum. On retroflexion, multiple fundic polyps were noted in the fundus and near the body of the stomach. Knock Out Hand biopsies were taken. These were all likely benign. There was no evidence of bleeding or complications from these biopsies. Upon removal, the esophagus again appeared normal. The procedure was completed without difficulty. She was discharged and will followup with biopsy results. She should continue taking her Prilosec and ranitidine. #[id number] [facility]
== END 2018-08-24 09:50 | disposition home or self-care (01) ==
LOC: AMB 05:37
PROVIDERS: ATTEND Surgery
DX: K21.0 Gastro-esophageal reflux disease with esophagitis (principal); K31.7 Polyp of stomach and duodenum; K29.70 Gastritis, unspecified, without bleeding; R00.1 Bradycardia, unspecified; Z80.0 Family history of malignant neoplasm of digestive organs; Z88.5 Allergy status to narcotic agent; Z90.710 Acquired absence of both cervix and uterus; Z79.899 Other long term (current) drug therapy
CPT/HCPCS: 00731; 36415; 43239; 80048; 85025; 88305; 88342; 93005; J3490; J7120

== ENCOUNTER → 2018-09-11 | Outpatient (CLI) | payer MEDICARE, OTHER ==
--- NOTE | 2018-09-11 12:28 | RAD ---
EXAM DESCRIPTION: Barium Swallow: Rad-Fluoroscopy. CLINICAL HISTORY: GASTRO ESOPHOGEAL REFLUX DISEASE W/O ESOPHAGITIS COMPARISON: None TECHNIQUE: The patient swallowed barium pill with water. The patient swallowed gas-producing granules, water, and heavy density barium under fluoroscopic visualization. The images were obtained with the patient upright and horizontal. Patient drank medium density barium through a straw in the semi-prone position. 68 fluoroscopic cine loop images. 9 static fluoroscopic images. Total fluoroscopy time was 2.7 minutes.. DAP: 9.92 Gy-cm2.. Technically difficult study due to patient physical condition: Minimal unsteadiness standing and difficulty moving when in horizontal position. FINDINGS: The patient was able to swallow the barium pill with water with normal transit time from the oropharynx to the stomach. Initially, there was minimally delayed emptying of the oral cavity. Symmetric coating of the hypopharynx. Initially, no laryngeal penetration or aspiration, but on lateral fluoroscopy of the oropharynx and larynx, contrast can be seen trickling down the anterior lumen wall of the proximal trachea. There was no coughing. The primary peristaltic wave terminates prematurely at the junction of the mid and distal third of the esophagus with secondary and tertiary contractions in the distal third and delayed passage through the gastroesophageal junction. Minimal gastroesophageal reflux and small sliding hiatal hernia with patient upright, but more significant gastroesophageal reflux to the level of the thoracic inlet with patient supine. No coughing. No mass effect on the esophagus and no mucosal abnormality of the distal esophagus. No mass effect or gross mucosal abnormality of the stomach. No gastroduodenal obstruction. IMPRESSION: 1. Silent laryngeal aspiration of liquid barium (no coughing). Consider modified barium swallow evaluation with speech-language pathologist. 2. Secondary and tertiary contractions in the distal third of the esophagus. Marked gastroesophageal reflux in the supine position to the level of the thoracic inlet. 3. Delayed passage through the gastroesophageal junction. Sliding hiatal hernia. Electronically signed by: Bartolo Henry MD 09/11/2018 12:26 PM CDT
== END ==
LOC: RAD 09:00
PROVIDERS: ATTEND Otolaryngology Otolaryngology/Facial Plastic Surgery
DX: K21.9 Gastro-esophageal reflux disease without esophagitis (principal); K44.9 Diaphragmatic hernia without obstruction or gangrene; R13.11 Dysphagia, oral phase; R09.82 Postnasal drip; R05 Cough

== ENCOUNTER → 2018-10-22 | Outpatient (CLI) | payer MEDICARE, OTHER | LOC: GMA MATASK 10:41 | PROVIDERS: ATTEND Family Medicine | DX: G40.109 Localization-related (focal) (partial) symptomatic epilepsy and epileptic syndromes with simple partial seizures, not intractable, without status epilepticus (principal); I10 Essential (primary) hypertension; E78.2 Mixed hyperlipidemia ==

== ENCOUNTER 2018-11-14 13:25 | Emergency (ER) | payer MEDICARE, OTHER ==
--- NOTE | 2018-11-14 14:45 | RAD ---
Procedure: XR ABDOMEN SUPINE AND ERECT WITH CHEST (ABD ACUTE SERIES) Exam Date: 11/14/2018 Ordering Provider: David Kahn Clinical Indication: llq pain 1 week Comparison: 12/04/2017 Findings: Upright chest x-ray: Cardiomediastinal silhouette is unremarkable. Aortic calcification. Pulmonary vasculature is unremarkable. There is no consolidation or effusion. No pneumothorax. Flat and upright abdomen: There is evidence of prior hernia repair in the left lower quadrant. Nonobstructive bowel gas pattern. There is no pneumoperitoneum. There are no suspicious calcifications. Pelvic phleboliths. No acute osseous abnormalities. Scoliosis. Impression: 1. No acute findings. Electronically signed by: Angelito Sanchez MD 11/14/2018 2:43 PM CDT
[2018-11-14] MEDS ORDERED: metroNIDAZOLE 500 MG TAB PO ONE (15:33)
[2018-11-14] MEDS ORDERED: CIPROFLOXACIN 500 MG TAB PO ONE (15:33)
--- NOTE | 2018-11-14 15:43 | ED.PDOC ---
History of Present Illness - General Chief Complaint: General Time Seen by Provider: 11/14/18 13:26 Source: patient Exam Limitations: no limitations - History of Present Illness Initial Comments: the patient is an 82-year-old female presenting to the emergency room secondary to left lower abdominal pain present for the last 4-5 days but getting somewhat worse. No fever. No nausea vomiting or diarrhea. She does have a history of diverticulitis in the past. Pain is localized to the left lower quadrant. No definite palpable mass. No skin changes. No vital sign instability. No clinical evidence of septic shock. The patient is alert pleasant and cooperative. Timing/Duration: other Severity: moderate Improving Factors: nothing Worsening Factors: nothing Associated Symptoms: malaise Allergies/Adverse Reactions: Allergies Codeine Adverse Reaction (Unknown, Verified 12/31/17 15:15) Nausea Home Medications: Ambulatory Orders ALPRAZolam [Xanax] 0.25 mg PO BEDTIME 05/24/14 Aspirin [Aspirin Childrens] 81 mg PO DAILY 05/24/14 Calcium Carbonate-Cholecalcife [Calcium 500+D 500-400 mg-Unit] 1 tab PO DAILY 05/24/14 Divalproex Sodium [Depakote] 250 mg PO TID 05/24/14 Meloxicam 7.5 mg PO DAILY 05/24/14 Ranitidine HCl 300 mg PO DAILY 05/24/14 Simvastatin [Zocor] 20 mg PO DAILY 06/19/16 Multiple Vitamins W/ Minerals [Multi For Her 50+] 1 cap PO DAILY 12/04/17 Hydroxychloroquine Sulfate [Hydroxychloroquine Sulfat] 200 mg PO BID 08/21/18 Quetiapine Fumarate 1 tablet PO QPM 08/21/18 Omeprazole [Prilosec Cap] 20 mg PO ACBK 08/24/18 Ciprofloxacin [Cipro] 500 mg PO BID #20 tab 11/14/18 Metronidazole 500 mg PO TID #30 tab 11/14/18 Review of Systems - Review of Systems Constitutional: States: malaise EENTM: States: no symptoms reported Respiratory: States: no symptoms reported Cardiology: States: no symptoms reported Gastrointestinal/Abdominal: States: abdominal pain Genitourinary: States: no symptoms reported Musculoskeletal: States: no symptoms reported Skin: States: no symptoms reported Neurological: States: no symptoms reported Endocrine: States: no symptoms reported All other Systems: No Change from Baseline Past Medical History (General) - Patient Medical History Hx Seizures: Yes - "Not for years" Hx Stroke: No Hx Dementia: No Hx Asthma: No Hx of COPD: No Hx Cardiac Disorders: Yes - atrial fibrillation Hx Congestive Heart Failure: No Hx Pacemaker: No Hx Hypertension: No Hx Thyroid Disease: Yes Hx Diabetes: No Hx Gastroesophageal Reflux: Yes Hx Renal Disease: No Hx Cancer: No Hx of HIV: No Hx Hepatitis C: No Hx MRSA: No Surgical History: Hysterectomy, other - Vaccination History Hx Tetanus, Diphtheria Vaccination: No Hx Influenza Vaccination: Yes - 2019 Hx Pneumococcal Vaccination: Yes - Social History Hx Tobacco Use: No Hx Alcohol Use: No Hx Substance Use: No Hx Substance Use Treatment: No Hx Depression: No - Female History Patient is a Female of Child Bearing Age (10 -59 yrs old): No Patient : No Family Medical History - Family History Mother Family History: No Known Living Status: Age at (years of age): 54 Cause of : colon CA Hx Family Cancer: Yes Physical Exam - Physical Exam General Appearance: Alert, Comfortable, No apparent distress Eye Exam: bilateral normal Ears, Nose, Throat: hearing grossly normal, normal ENT inspection Neck: full range of motion, supple Respiratory: lungs clear, normal breath sounds, no respiratory distress, no accessory muscle use Cardiovascular/Chest: normal peripheral pulses, no edema, other - regular rate Peripheral Pulses: radial,right: 2+, radial,left: 2+, dorsalis pedis,right: 2+, dorsalis pedis,left: 2+ Gastrointestinal/Abdominal: soft, other - the patient does have left lower quadrant discomfort palpation. No real guarding. No rebound. No definite palpable mass. 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 X-ray and lab work as well as vital signs are reassuring. The patient is going to be placed on ciprofloxacin and me tronidazole for 10 days. She needs to keep herself from getting constipated. If she is obviously not improving or getting worse then she may need additional workup including CT scan and possibly IV antibiotics. Otherwise, the patient needs to follow back up with her primary care doctor early this coming week. ER warnings are given for a significant worsening. She should hold her cholesterol medication while taking the antibiotics. Also take the antibiotics with food and avoid any alcohol intake. - Results/Orders Results/Orders: acute abdominal series shows no acute pathology. No perforation or obstruction. No pulmonary infiltrates. Laboratory Tests 11/14/18 11/14/18 11/14/18 14:00 14:00 14:00 WBC 4.6 L RBC 4.04 L Hgb 13.2 Hct 38.1 MCV 94.2 MCH 32.6 H MCHC 34.6 RDW 13.5 Plt Count 185 MPV 9.6 Absolute Neuts (auto) 2.90 Absolute Lymphs (auto) 1.10 Absolute Monos (auto) 0.60 Absolute Eos (auto) 0.00 Absolute Basos (auto) 0.00 Neutrophils % 62.0 Lymphocytes % 22.9 Monocytes % 13.9 H Eosinophils % 0.6 L Basophils % 0.6 Sodium 136 Potassium 4.1 Chloride 99 L Carbon Dioxide 24 Anion Gap 17.1 BUN 18 Creatinine 1.12 BUN/Creatinine Ratio 16.1 Random Glucose 97 Serum Osmolality 273.8 L Lactic Acid 1.1 Calcium 9.2 Total Bilirubin 0.3 AST 19 ALT 19 Alkaline Phosphatase 57 Serum Total Protein 6.6 Albumin 3.5 Globulin 3.1 Albumin/Globulin Ratio 1.1 Amylase 27 L Lipase 23 Urine Color Urine Appearance Urine pH Ur Specific [place] Urine Protein Urine Glucose (UA) Urine Ketones Urine Blood Urine Nitrite Urine Bilirubin Urine Urobilinogen Ur Leukocyte Esterase Urine RBC Urine WBC Ur Epithelial Cells Amorphous Sediment Urine Bacteria Urine Mucus 11/14/18 14:10 WBC RBC Hgb Hct MCV MCH MCHC RDW Plt Count MPV Absolute Neuts (auto) Absolute Lymphs (auto) Absolute Monos (auto) Absolute Eos (auto) Absolute Basos (auto) Neutrophils % Lymphocytes % Monocytes % Eosinophils % Basophils % Sodium Potassium Chloride Carbon Dioxide Anion Gap BUN Creatinine BUN/Creatinine Ratio Random Glucose Serum Osmolality Lactic Acid Calcium Total Bilirubin AST ALT Alkaline Phosphatase Serum Total Protein Albumin Globulin Albumin/Globulin Ratio Amylase Lipase Urine Color Yellow Urine Appearance Clear Urine pH 6.5 Ur Specific [place] 1.025 Urine Protein Negative Urine Glucose (UA) Negative Urine Ketones Negative Urine Blood Trace-lysed H Urine Nitrite Negative Urine Bilirubin Negative Urine Urobilinogen 0.2 Ur Leukocyte Esterase Trace H Urine RBC 1-3 Urine WBC 5-10 H Ur Epithelial Cells 0-1 Amorphous Sediment Trace Urine Bacteria Rare Urine Mucus Trace Departure - Departure Clinical Impression: Diverticulitis Disposition: Discharge to Home or Self Care Condition: Fair Departure Forms: ED Discharge - Pt. Copy, Patient Portal Self Enrollment Instructions: Diverticulitis (DC) Diet: regular diet - high-fiber diet Activity: increase activity as tolerated Referrals: Surinder Goodman MD [Primary Care Provider] - 1-2 Weeks Prescriptions: Ciprofloxacin [Cipro] 500 mg PO BID #20 tab Metronidazole 500 mg PO TID #30 tab Home Medications: Ambulatory Orders ALPRAZolam [Xanax] 0.25 mg PO BEDTIME 05/24/14 Aspirin [Aspirin Childrens] 81 mg PO DAILY 05/24/14 Calcium Carbonate-Cholecalcife [Calcium 500+D 500-400 mg-Unit] 1 tab PO DAILY 05/24/14 Divalproex Sodium [Depakote] 250 mg PO TID 05/24/14 Meloxicam 7.5 mg PO DAILY 05/24/14 Ranitidine HCl 300 mg PO DAILY 05/24/14 Simvastatin [Zocor] 20 mg PO DAILY 06/19/16 Multiple Vitamins W/ Minerals [Multi For Her 50+] 1 cap PO DAILY 12/04/17 Hydroxychloroquine Sulfate [Hydroxychloroquine Sulfat] 200 mg PO BID 08/21/18 Quetiapine Fumarate 1 tablet PO QPM 08/21/18 Omeprazole [Prilosec Cap] 20 mg PO ACBK 08/24/18 Ciprofloxacin [Cipro] 500 mg PO BID #20 tab 11/14/18 Metronidazole 500 mg PO TID #30 tab 11/14/18 Additional Instructions: the patient's an 82-year-old female presenting to the emergency room secondary to left lower quadrant pain that is clinically most consistent with a flare of her diverticulitis. X-ray and lab work as well as vital signs are reassuring. The patient is going to be placed on ciprofloxacin and metronida zole for 10 days. She needs to keep herself from getting constipated. If she is obviously not improving or getting worse then she may need additional workup including CT scan and possibly IV antibiotics. Otherwise, the patient needs to follow back up with her primary care doctor early this coming week. ER warnings are given for a significant worsening. She should hold her cholesterol medication while taking the antibiotics. Also take the antibiotics with food and avoid any alcohol intake.
[2018-11-14 16:08] VITALS: BP 139/77; TEMP 97.8; O2SAT 100
== END 2018-11-14 15:55 | disposition home or self-care (01) ==
LOC: ER 13:25
DX: K57.32 Diverticulitis of large intestine without perforation or abscess without bleeding (principal); I48.91 Unspecified atrial fibrillation; E07.9 Disorder of thyroid, unspecified; K21.9 Gastro-esophageal reflux disease without esophagitis; Z79.899 Other long term (current) drug therapy; Z79.82 Long term (current) use of aspirin; Z88.5 Allergy status to narcotic agent

== ENCOUNTER → 2018-12-10 | Outpatient (CLI) | payer MEDICARE, OTHER ==
--- NOTE | 2018-12-10 14:03 | US ---
EXAM DESCRIPTION: Soft Tissue,Head/Neck: ULTRASOUND. CLINICAL HISTORY: 82 years Female LOCALIZED SWELLING, MASS AND LUMP COMPARISON: Noncontrast CT scan of the head July 2018. TECHNIQUE: Transcutaneous scanning: Cabral-scale and Doppler modes. FINDINGS: In the right neck at the region of concern is a circumscribed mass with hypoechoic cortex and echogenic hilum consistent with a lymph node. No vascular pedicle in the lymph node. Dimensions are 7.6 x 7.0 x 3.0 mm. Moderate than tall orientation and posterior acoustic enhancement. Scans were also performed of the left neck soft tissues at the same level with no solid mass or distinct cyst seen. No calcifications bilaterally and no overlying skin changes. IMPRESSION: Lymph node in the region of palpable mass has a normal appearance. No other masses bilaterally. Electronically signed by: Bartolo Henry MD 12/10/2018 2:02 PM GERIATRIC ASSISTANT
== END ==
LOC: US 10:00
PROVIDERS: ATTEND Family Medicine
DX: R22.9 Localized swelling, mass and lump, unspecified (principal)

== ENCOUNTER 2018-12-27 10:14 | Observation (INO) | payer MEDICARE, OTHER ==
--- NOTE | 2018-12-27 11:19 | CT ---
EXAM DESCRIPTION: Head CLINICAL HISTORY: fall, syncope vs seizure COMPARISON: 07/20/2018 TECHNIQUE: Multiple axial images of the head without contrast. Multiplanar reformatted images. This exam was performed according to our departmental dose-optimization program, which includes automated exposure control, adjustment of the mA and/or kV according to patient size and/or use of iterative reconstruction technique. FINDINGS: There is no CT evidence of intracranial hemorrhage, mass effect, or large territory infarction. Mild generalized volume loss. Mild patchy supratentorial white matter hypodensities. There are no abnormal extra-axial fluid collections. Calcific plaque in the visualized arteries. There is no acute calvarial defect. The visualized paranasal sinuses and the mastoids are clear. IMPRESSION: 1. No CT evidence of an acute intracranial abnormality. If there is concern for an acute or subacute infarct, consider follow-up MRI. 2. Senescent changes. Electronically signed by: Kelvin Simpson MD 12/27/2018 11:18 AM SALES ROUTE DRIVER HELPER
--- NOTE | 2018-12-27 11:36 | RAD ---
EXAM DESCRIPTION: Chest,1 View CLINICAL HISTORY: syncope vs seizure COMPARISON: December 31, 2017 IMPRESSION: Single AP portable upright view of the chest shows cardiac silhouette and pulmonary vasculature to be within normal limits. Lungs are normally aerated. 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 Recommend further evaluation with low-dose noncontrast screening CT protocol the chest for better evaluation of this finding. No acute appearing infiltrate or consolidation is seen in the lungs. No obvious pleural effusion or pneumothorax is seen. Electronically signed by: Keny Thapa MD 12/27/2018 11:35 AM SCRAP DEALER
--- NOTE | 2018-12-27 11:36 | RAD ---
EXAM DESCRIPTION: Hand,Left 2 Views CLINICAL HISTORY: syncope vs seizure COMPARISON: None. TECHNIQUE: 2 views left FINDINGS: An orthopedic plate is observed along the volar aspect of the distal radius. Some calcification of the trigone or fibrocartilage is observed. Diffuse osteopenia is observed. Mild degenerative changes are noted. No acute fracturing is detected. IMPRESSION: No acute injury is detected. Electronically signed by: Justen Lyles MD 12/27/2018 11:34 AM [facility]
--- NOTE | 2018-12-27 11:37 | RAD ---
EXAM DESCRIPTION: Hip,Left 2 Views CLINICAL HISTORY: syncope vs seizure COMPARISON: None. TECHNIQUE: 2 views left FINDINGS: I see no evidence of a fracture or dislocation. Minimal degenerative changes observed in the left hip. Mild degenerative changes are seen in the pubic symphysis. IMPRESSION: No fracturing is detected. Electronically signed by: Justen Lyles MD 12/27/2018 11:36 AM [facility]
--- NOTE | 2018-12-27 11:38 | RAD ---
EXAM DESCRIPTION: Hip,Right 2 Views CLINICAL HISTORY: syncope vs seizure COMPARISON: None. TECHNIQUE: 2 views right. FINDINGS: Minimal degenerative changes observed in the right hip. No evidence of a fracture or dislocation is seen. No pelvic injury is detected. IMPRESSION: No fracturing is detected. Electronically signed by: Justen Lyles MD 12/27/2018 11:37 AM [facility]
--- NOTE | 2018-12-27 11:39 | RAD ---
EXAM DESCRIPTION: Pelvis CLINICAL HISTORY: syncope vs seizure COMPARISON: None. TECHNIQUE: AP pelvis FINDINGS: The exam reveals evidence of probable left-sided hernia repair. Mild osteopenia is observed in the pelvis. Mild degenerative changes are observed in the pubic symphysis. No evidence for fracture is seen. IMPRESSION: No fracturing is detected. Electronically signed by: Justen Lyles MD 12/27/2018 11:38 AM [facility]
--- NOTE | 2018-12-27 11:41 | RAD ---
EXAM DESCRIPTION: Wrist,Left 2 Views CLINICAL HISTORY: syncope vs seizure COMPARISON: None. TECHNIQUE: 2 views left FINDINGS: A volar compression plate is observed in the distal left radius. Mild radial ulnar arthritis is observed. Calcification of the trigone or fibrocartilage is noted. Mild soft tissue swelling is observed posterior to the wrist. No fracture is detected. Mild osteopenia is observed. IMPRESSION: No acute bone injury is detected. Electronically signed by: Justen Lyles MD 12/27/2018 11:39 AM [facility]
--- NOTE | 2018-12-27 11:49 | CT ---
EXAM DESCRIPTION: Cervical Spine CLINICAL HISTORY: fall, syncope vs seizure COMPARISON: None Available. TECHNIQUE: Multiple axial images of the cervical spine without contrast. Multiplanar reformatted images. This exam was performed according to our departmental dose-optimization program, which includes automated exposure control, adjustment of the mA and/or kV according to patient size and/or use of iterative reconstruction technique. FINDINGS: Vertebral body stature and alignment are maintained. There is no acute fracture or destructive osseous lesion. Multilevel spondylitic changes with moderate to severe disc narrowing from C4-C5 through C6-C7. Multilevel uncovertebral spurring, disc osteophyte complexes, and facet hypertrophy with up to mild spinal canal stenosis and moderate bilateral neural foraminal stenosis at C5-C6 and C6-C7. Less pronounced stenoses at the remaining levels. Atherosclerosis in the great vessels of the neck. Emphysema in the lung apices. IMPRESSION: 1. No CT evidence of an acute osseous abnormality in the cervical spine. 2. Multilevel spondylitic changes. Electronically signed by: Kelvin Simpson MD 12/27/2018 11:48 AM [facility]
--- NOTE | 2018-12-27 12:51 | ED.PDOC ---
History of Present Illness - General Chief Complaint: Trauma Stated Complaint: fall; possible seizure; skin tear Time Seen by Provider: 12/27/18 10:39 Source: patient Exam Limitations: no limitations - History of Present Illness Initial Comments: the patient is an 83-year-old female presented to the emergency room secondary to having an episode of losing consciousness and a fall. The patient does not remember the fall. The last thing that she remembers is leaning over to vacuum underneath the bed. The patient does have a history of seizures but does not usually pass out with them. She takes Depakote for her seizures. She has a skin abrasion to the dorsal aspect of her left wrist. She has mild pain in bilateral hips and the left wrist. She was ambulatory after the event. No overt evidence of head trauma. No neck pain. The patient is alert and cooperative. The patient is concerned that her psychiatric medication, Seroquel may have something to do with her syncopal episode. She was apparently just placed on it within the last month. Timing/Duration: 1 hour Severity: moderate Improving Factors: nothing Worsening Factors: nothing Associated Symptoms: malaise, syncope Allergies/Adverse Reactions: Allergies Codeine Adverse Reaction (Unknown, Verified 12/31/17 15:15) Nausea Home Medications: Ambulatory Orders ALPRAZolam [Xanax] 0.25 mg PO BEDTIME 05/24/14 Aspirin [Aspirin Childrens] 81 mg PO DAILY 05/24/14 Calcium Carbonate-Cholecalcife [Calcium 500+D 500-400 mg-Unit] 1 tab PO DAILY 05/24/14 Divalproex Sodium [Depakote] 250 mg PO TID 05/24/14 Meloxicam 7.5 mg PO DAILY 05/24/14 Ranitidine HCl 300 mg PO DAILY 05/24/14 Simvastatin [Zocor] 20 mg PO DAILY 06/19/16 Multiple Vitamins W/ Minerals [Multi For Her 50+] 1 cap PO DAILY 12/04/17 Hydroxychloroquine Sulfate [Hydroxychloroquine Sulfat] 200 mg PO BID 08/21/18 Quetiapine Fumarate 1 tablet PO QPM 08/21/18 Omeprazole [Prilosec Cap] 20 mg PO ACBK 08/24/18 Ciprofloxacin [Cipro] 500 mg PO BID #20 tab 11/14/18 Metronidazole 500 mg PO TID #30 tab 11/14/18 Review of Systems - Review of Systems Constitutional: States: malaise EENTM: States: no symptoms reported Respiratory: States: no symptoms reported Cardiology: States: no symptoms reported Gastrointestinal/Abdominal: States: no symptoms reported Genitourinary: States: no symptoms reported Musculoskeletal: States: see HPI Skin: States: see HPI Neurological: States: see HPI Endocrine: States: no symptoms reported All other Systems: No Change from Baseline Past Medical History (General) - Patient Medical History Hx Seizures: Yes - "Not for years" Hx Stroke: No Hx Dementia: No Hx Asthma: No Hx of COPD: No Hx Cardiac Disorders: Yes - atrial fibrillation Hx Congestive Heart Failure: No Hx Pacemaker: No Hx Hypertension: No Hx Thyroid Disease: Yes Hx Diabetes: No Hx Gastroesophageal Reflux: Yes Hx Renal Disease: No Hx Cancer: No Hx of HIV: No Hx Hepatitis C: No Hx MRSA: No - Vaccination History Hx Tetanus, Diphtheria Vaccination: No Hx Influenza Vaccination: Yes - 2019 Hx Pneumococcal Vaccination: Yes - Social History Hx Tobacco Use: No Hx Alcohol Use: No Hx Substance Use: No Hx Substance Use Treatment: No Hx Depression: No - Female History Patient : No Family Medical History - Family History Mother Family History: No Known Living Status: Age at (years of age): 54 Cause of : colon CA Hx Family Cancer: Yes Physical Exam - Physical Exam General Appearance: Alert, Comfortable, No apparent distress Ears, Nose, Throat: hearing grossly normal - hronically decreased bilaterally, normal pharynx Neck: full range of motion, supple Respiratory: lungs clear, normal breath sounds, no respiratory distress, no accessory muscle use Cardiovascular/Chest: normal peripheral pulses, regular rate, rhythm, no edema Peripheral Pulses: radial,right: 2+, radial,left: 2+ Gastrointestinal/Abdominal: non tender, soft, other - pelvis appears to be stable. Rectal Exam: deferred Back Exam: no CVA tenderness, no vertebral tenderness Extremity: normal range of motion, non-tender, no pedal edema, normal capillary refill Neurologic: director of medical review II-XII nml as tested, alert, normal mood/affect, oriented x 3 Skin Exam: normal color - skin tear to the dorsal left wrist Comments: Vital Signs - 24 hr 12/27/18 12/27/18 10:18 11:25 Temperature 99.3 F Pulse Rate [ 56 L 65 left brachial] Respiratory 16 18 Rate Blood Pressure 121/56 151/63 [left brachial] O2 Sat by Pulse 97 99 Oximetry Progress - Progress Progress: 12/27/18 12:53 the patient is an 83-year-old female presenting after what is essentially a syncopal episode. It is uncertain whether the syncope was caused by a seizure as she does have a history of epilepsy. Depakote level does not appear to be significantly low. The patient has exhibited no recurrent episodes since her arrival here. The patient is going to be admitted for observation for the next 24 hours. I would recommend continuing telemetry monitoring. Encourage oral intake. On ambulation evaluation would be warranted in this patient as well. Given her activity at the time of the event, and evaluation in the near future with a carotid ultrasound, if she has not had one recently may be warranted. - Results/Orders Results/Orders: EKG shows normal sinus rhythm at 69 bpm normal QT interval. Normal axis. Normal R-wave progression. No definitive ST segment or T-wave changes indicative of acute ischemia. Head CT shows chronic changes but no acute pathology. Cervical spine CT shows chronic changes but no acute pathology. Chest x-ray shows a 1 cm pulmonary nodule that will need follow-up as an outpatient. No acute trauma. No overt infection. X-rays of the left hand, left wrist, left hip, right hip and pelvis show evidence of arthritic changes but no acute bony pathology otherwise. See reports of above for details. Laboratory Results - last 24 hr 12/27/18 12/27/18 12/27/18 10:56 10:56 10:56 WBC 5.1 RBC 4.02 L Hgb 12.9 Hct 38.5 MCV 95.7 MCH 32.1 H MCHC 33.5 RDW 13.4 Plt Count 178 MPV 9.5 Absolute Neuts (auto) 3.70 Absolute Lymphs (auto) 0.70 L Absolute Monos (auto) 0.70 Absolute Eos (auto) 0.00 Absolute Basos (auto) 0.00 Neutrophils % 72.8 Lymphocytes % 13.4 L Monocytes % 13.2 H Eosinophils % 0.4 L Basophils % 0.2 Sodium 140 Potassium 4.4 Chloride 103 Carbon Dioxide 25 Anion Gap 16.4 BUN 21 H Creatinine 1.06 BUN/Creatinine Ratio 19.8 Random Glucose 83 Serum Osmolality 281.5 Lactic Acid 1.4 Calcium 9.1 Magnesium 2.1 Total Bilirubin 0.4 AST 22 ALT 20 Alkaline Phosphatase 52 Creatine Kinase 154 H CK-MB (CK-2) 4.9 H* CK-MB (CK-2) % 3.18 Troponin I < 0.02 B-Natriuretic Peptide 48.0 Serum Total Protein 6.4 Albumin 3.6 Globulin 2.8 Albumin/Globulin Ratio 1.3 TSH 3.45 Urine Color Urine Appearance Urine pH Ur Specific [place] Urine Protein Urine Glucose (UA) Urine Ketones Urine Blood Urine Nitrite Urine Bilirubin Urine Urobilinogen Ur Leukocyte Esterase Urine RBC Urine WBC Ur Epithelial Cells Ur Squamous Epith Cells Ur Transition Epith Cell Ur Renal Epithelial Cell Calcium Oxalate Crystal Uric Acid Crystals Triple Phos Crystals Other Crystals Amorphous Sediment Urine Bacteria Hyaline Casts Fine Granular Casts Coarse Granular Casts Waxy Casts RBC Casts WBC Casts Other Casts Urine Mucus Urine Other Urine Trichomonas Urine Yeast Urine Sperm Ur Oval Fat Bodies Valproic Acid 12/27/18 12/27/18 12/27/18 10:56 11:00 12:00 WBC RBC Hgb Hct MCV MCH MCHC RDW Plt Count MPV Absolute Neuts (auto) Absolute Lymphs (auto) Absolute Monos (auto) Absolute Eos (auto) Absolute Basos (auto) Neutrophils % Lymphocytes % Monocytes % Eosinophils % Basophils % Sodium Potassium Chloride Carbon Dioxide Anion Gap BUN Creatinine BUN/Creatinine Ratio Random Glucose Serum Osmolality Lactic Acid Calcium Magnesium Total Bilirubin AST ALT Alkaline Phosphatase Creatine Kinase CK-MB (CK-2) CK-MB (CK-2) % Troponin I B-Natriuretic Peptide Serum Total Protein Albumin Globulin Albumin/Globulin Ratio TSH Urine Color Cancelled Yellow Urine Appearance Cancelled Clear Urine pH Cancelled 7.0 Ur Specific [place] Cancelled 1.020 Urine Protein Cancelled Negative Urine Glucose (UA) Cancelled Negative Urine Ketones Cancelled Negative Urine Blood Cancelled Trace-lysed H Urine Nitrite Cancelled Negative Urine Bilirubin Cancelled Negative Urine Urobilinogen Cancelled 0.2 Ur Leukocyte Esterase Cancelled Negative Urine RBC Cancelled 1-3 Urine WBC Cancelled 1-3 Ur Epithelial Cells Cancelled 0-1 Ur Squamous Epith Cells Cancelled Ur Transition Epith Cell Cancelled Ur Renal Epithelial Cell Cancelled Calcium Oxalate Crystal Cancelled Uric Acid Crystals Cancelled Triple Phos Crystals Cancelled Other Crystals Cancelled Amorphous Sediment Cancelled Urine Bacteria Cancelled 0 Hyaline Casts Cancelled Fine Granular Casts Cancelled Coarse Granular Casts Cancelled Waxy Casts Cancelled RBC Casts Cancelled WBC Casts Cancelled Other Casts Cancelled Urine Mucus Cancelled Urine Other Cancelled Urine Trichomonas Cancelled Urine Yeast Cancelled Urine Sperm Cancelled Ur Oval Fat Bodies Cancelled Valproic Acid 60.4 Departure - Departure Clinical Impression: Encounter for skin care Syncope Qualifiers: Syncope type: unspecified Qualified Code(s): R55 - Syncope and collapse Fall at home Qualifiers: Encounter type: initial encounter Qualified Code(s): W19.XXXA - Unspecified fall, initial encounter; Y92.009 - Unspecified place in unspecified [facility] residence as the place of occurrence of the external cause Disposition: Admit Patient Condition: Fair Departure Forms: ED Discharge - Pt. Copy, Patient Portal Self Enrollment Referrals: Surinder Goodman MD [Primary Care Provider] - 1-2 Weeks Home Medications: Ambulatory Orders ALPRAZolam [Xanax] 0.25 mg PO BEDTIME 05/24/14 Aspirin [Aspirin Childrens] 81 mg PO DAILY 05/24/14 Calcium Carbonate-Cholecalcife [Calcium 500+D 500-400 mg-Unit] 1 tab PO DAILY 05/24/14 Divalproex Sodium [Depakote] 250 mg PO TID 05/24/14 Meloxicam 7.5 mg PO DAILY 05/24/14 Ranitidine HCl 300 mg PO DAILY 05/24/14 Simvastatin [Zocor] 20 mg PO DAILY 06/19/16 Multiple Vitamins W/ Minerals [Multi For Her 50+] 1 cap PO DAILY 12/04/17 Hydroxychloroquine Sulfate [Hydroxychloroquine Sulfat] 200 mg PO BID 08/21/18 Quetiapine Fumarate 1 tablet PO QPM 08/21/18 Omeprazole [Prilosec Cap] 20 mg PO ACBK 08/24/18 Ciprofloxacin [Cipro] 500 mg PO BID #20 tab 11/14/18 Metronidazole 500 mg PO TID #30 tab 11/14/18 Decision To Admit - Decistion To Admit Decision to Admit Reason: Accidental Injury Decision to Admit Date: 12/27/18 Decision to Admit Time: 12:56
--- NOTE | 2018-12-27 13:09 | HP ---
SUPERVISING PHYSICIAN: Surinder Goodman MD CHIEF COMPLAINT: Syncopal episode at home. HISTORY OF PRESENT ILLNESS: This is an 83-year-old female patient who came to the Emergency Room after she had an episode of losing consciousness and a fall at home. She does not remember the fall. She just remembers leaning over to vacuum underneath the bed and the next thing she knew, she woke up on the floor. She does have a history of seizures, but does not usually pass out with them. She takes Depakote for her seizures. There was a skin abrasion to the dorsal aspect of her left wrist. She also has some bilateral hip pain. She was ambulatory in the Emergency Room. There was no overt head trauma, no neck pain. She was alert and cooperative. About 3 months ago, one of her medications was discontinued and Dr. Malcolm put her on 25 mg of Seroquel. About one month ago, Dr. Goodman, her new primary care physician, increased her dosing to 50 mg at bedtime. She has had some mild dizziness since increasing it. She has taken Xanax 0.5 mg at bedtime for many years and at the same time her Seroquel was increased, her Xanax was decreased to 0.25 mg. In the Emergency Room, her vital signs showed temperature 99.3, heart rate 56, blood pressure 121/56, respiratory rate 18, O2 saturation 97% on room air. Lab studies were done and her CBC was unremarkable. Her electrolytes were within normal limits and her lactic acid was 1.4. Troponin within normal limits. BNP 48. Liver enzymes were within normal limits. She had a negative urinalysis and her Depakote level was 60.4. Her radiology reports show a left wrist x-ray that showed no acute bony injury. Her pelvic x-ray showed no fracturing detected. Her right hip x-ray shows no acute fracture. Her left hip x-ray shows no acute fracture. Her left hand shows no acute injury. Her head CT shows no CT evidence of an acute intracranial abnormality. Chest x-ray shows acute appearing infiltrate or consolidation, no pleural effusion or pneumothorax. Cardiac silhouette and pulmonary vasculature are within normal limits. I was called for hospital admission. PAST MEDICAL HISTORY: 1. Gastroesophageal reflux disease. 2. Seizure disorder on Depakote. 3. Unspecified bradycardia. 4. Hyperlipidemia. 5. Diverticulosis. 6. Mild dementia. PAST SURGICAL HISTORY: 1. Cholecystectomy. 2. Hysterectomy. 3. Bladder and rectal repair. 4. Hernia repair. OUTPATIENT MEDICATIONS: 1. Calcium. 2. Multivitamins. 3. Seroquel. 4. Alprazolam. 5. Aspirin. 6. Depakote. 7. Hydroxychloroquine sulfate 8. Meloxicam. 9. Omeprazole. 10. Ranitidine. 11. Simvastatin. ALLERGIES: CODEINE. FAMILY HISTORY: Positive for leukemia and gastric cancer. SOCIAL HISTORY: She lives in [place]. She denies any tobacco, ETOH or illicit drug use. REVIEW OF SYSTEMS: Negative except as per history of present illness. PHYSICAL EXAMINATION: VITAL SIGNS: Temperature 98.3. Heart rate 62. Blood pressure 129/73. Respiratory rate 18. O2 saturation 97% on room air. GENERAL: This is an 83-year-old female patient sitting up in her hospital bed. She is in no acute distress. HEENT: Normocephalic, atraumatic. Pupils are equal and reactive. Oropharynx is clear. NECK: Supple without mass. RESPIRATORY: Essentially clear to auscultation bilaterally. CHEST: There is equal rise and fall of the chest with inspiration and expiration. CARDIOVASCULAR: Regular rate and rhythm. GASTROINTESTINAL: Abdomen is soft, nondistended, nontender. Bowel sounds are positive. EXTREMITIES: Bilateral pedal pulses are palpable at +2. She does have a dressing to her left wrist that is dry and intact. There is no edema, cyanosis. NEUROLOGIC: Awake, alert and oriented times three. Cranial nerves II-XII are grossly intact as tested. SKIN: Warm and dry. LABORATORY: Labs and films are as per history of present illness. IMPRESSION: 1. Syncopal episode with a history of seizures. It is unknown if she had seizure activity at the time of her syncopal episode. 2. Seizure disorder on Depakote, Xanax and Seroquel with recent change to her dosing. There was an increase in her Seroquel and a decrease in her Xanax. 3. Hyperlipidemia. 4. Gastroesophageal reflux disease. 5. Bradycardia. 6. Mild dementia. 7. Hyperlipidemia. PLAN: The patient has been placed in observation. She will get gentle fluids overnight. We will recheck her labs in the morning. Home medications have been restarted. She will be on the cafeteria monitor. We will do neuro checks. There seems to be a change in her mental status with some mild dizziness about the time she increased her Seroquel and decreased her Xanax, so I will go back to 25 mg of Seroquel at night and she will have 0.25 mg of Xanax at night with p.r.n. 0.25 mg if needed. She has Lovenox for DVT prophylaxis. She is on Prilosec and H2 antihistamine for her GERD. I discussed with Dr. Goodman a plan of care and will monitor closely and follow as needed. #[id number] [facility]
[2018-12-27] MEDS ORDERED: SODIUM CHLORIDE 0.9% (FLUSH) 10 ML SYG IV PRN (14:07)
[2018-12-27] MEDS ORDERED: SODIUM CHLORIDE 0.45% 1000ML 1,000 ML IVS ONE (14:16)
[2018-12-27] MEDS ORDERED: IV SET AND CAP CHANGE INJ INJ SCH (14:30)
[2018-12-27] MEDS ORDERED: ALPRAZolam 0.25 MG TAB PO PRN (19:10)
[2018-12-27] MEDS ORDERED: ASPIRIN (ENTERIC COATED) 81 MG TAB PO ONE (19:59)
[2018-12-27] MEDS: DIVALPROEX SODIUM DR 250 MG TAB PO SCH (20:57)
[2018-12-27] MEDS ORDERED: RANITIDINE HCL 300 MG PO SCH (21:00)
[2018-12-27] MEDS ORDERED: ALPRAZolam 0.25 MG TAB PO SCH (21:00)
[2018-12-27] MEDS ORDERED: QUEtiapine FUMARATE 25 MG TAB PO SCH (21:00)
[2018-12-27] MEDS ORDERED: ASPIRIN (CHEWABLE) 81 MG TAB PO SCH (21:00)
[2018-12-27] MEDS ORDERED: ENOXAPARIN SODIUM 40 MG/0.4 ML SYG SUBCU SCH (21:00)
[2018-12-28 08:42] VITALS: BP 122/66; TEMP 98; O2SAT 99
[2018-12-28] MEDS ORDERED: OMEPRAZOLE CAP 20 MG CAP PO SCH (09:00)
[2018-12-28] MEDS ORDERED: MELOXICAM 7.5 MG TAB PO SCH (09:00)
[2018-12-28] MEDS: DIVALPROEX SODIUM DR 250 MG TAB PO SCH (09:04)
--- NOTE | 2018-12-28 13:35 | DS ---
SUPERVISING PHYSICIAN: Surinder Goodman MD DISCHARGE DIAGNOSES: 1. Syncopal episode with a history of seizures. It is unknown if she had seizure activity at the time of her syncopal episode, although her Depakote level was therapeutic. 2. Seizure disorder on Depakote, Xanax and Seroquel with recent change to her dosing. There was an increase in her Seroquel and a decrease in her Xanax. 3. Hyperlipidemia. 4. Gastroesophageal reflux disease. 5. Bradycardia. 6. Mild dementia. 7. Hyperlipidemia. HISTORY OF PRESENT ILLNESS: This is a 83-year-old female patient who came to the Emergency Room after she had an episode of losing consciousness and a fall at home. She does not remember the fall. She just remembers leaning over to vacuum underneath the bed and the next thing she knew, she woke up on the floor. She does have a history of seizures, but does not usually pass out with them. She takes Depakote for her seizures. There was a skin abrasion to the dorsal aspect of her left wrist. She also has some bilateral hip pain. She was ambulatory in the Emergency Room. There was no overt head trauma, no neck pain. She was alert and cooperative. About 3 months ago, one of her medications was discontinued and Dr. Malcolm put her on 25 mg of Seroquel. About one month ago, Dr. Goodmna, her new primary care physician, increased her dosing to 50 mg at bedtime. She has had some mild dizziness since increasing it. She has taken Xanax 0.5 mg at bedtime for many years and at the same time her Seroquel was increased, her Xanax was decreased to 0.25 mg. In the Emergency Room, her vital signs showed temperature 99.3, heart rate 56, blood pressure 121/56, respiratory rate 18, O2 saturation 97% on room air. Lab studies were done and her CBC was unremarkable. Her electrolytes were within normal limits and her lactic acid was 1.4. Troponin within normal limits. BNP 48. Liver enzymes were within normal limits. She had a negative urinalysis and her Depakote level was 60.4. Her radiology reports show a left wrist x-ray that showed no acute bony injury. Her pelvic x-ray showed no fracturing detected. Her right hip x-ray shows no acute fracture. Her left hip x-ray shows no acute fracture. Her left hand shows no acute injury. Her head CT shows no CT evidence of an acute intracranial abnormality. Chest x-ray showed acute appearing infiltrate or consolidation, no pleural effusion or pneumothorax. Cardiac silhouette and pulmonary vasculature were within normal limits. HOSPITAL COURSE: The patient was placed in observation. She got a liter of fluid overnight. Labs were checked this morning and her home medications were restarted. She had no adverse events on the product marketing analyst. Her neuro checks were within normal limits. On initial observation, she had some mild tremors. This morning after decreasing and increasing her Xanax at night, her tremors are much less noticeable and she states she actually feels much better. She received Lovenox for DVT prophylaxis. The actual changes her Seroquel were decreased to 25 mg at bedtime and she was continued on 0.25 mg of Xanax at night and had an extra 0.25 mg if needed. She did take it last night. An echocardiogram was performed this morning and she will be discharged home in stable condition. LABORATORY: Her initial WBC was 5.1 with followup today at 4.4. Hemoglobin and hematocrit were stable at 12.3 and 36.3. Her chemistries totally within normal limits with the exception of her protein being slightly low at 5.6 and her albumin was 3.1. Urinalysis was unremarkable. Valproic acid was 60.4. Radiology reports are as per the history of present illness. DISCHARGE PLAN: The patient will be discharged home in stable condition. We discussed her medications at length. She is to resume her previous diet and activity and she will have [facility]. Her Seroquel is to be decreased to 25 mg at bedtime. She is to continue with her Xanax 0.25 mg and then an additional 0.25 mg as needed. She will also go home on a product marketing analyst for 2 weeks. I am not sure if there was some seizure disorder due to her syncopal episodes or if she had orthostatic hypotension or a bradycardiac event but she has a followup with Dr. Marrufo on 01/02/19 at 8:45 AM. They can review her echocardiogram at that time as well as her cardiac event monitor. She is to return to the hospital or followup with Dr. Goodman for any problems or complications. [facility] has been contacted about patient's discharge. DISCHARGE MEDICATIONS: 1. Calcium plus vitamin D. 2. Meloxicam. 4. Aspirin. 5. Alprazolam. 6. Ranitidine. 7. Depakote. 8. Simvastatin. 9. Multivitamins. 10. Seroquel 25 mg at h.s. 11. Hydroxychloroquine sulfate. 12. Omeprazole. 13. Xanax 0.25 mg at bedtime and 0.25 mg p.r.n. #[id number]
[2018-12-28] MEDS ORDERED: SIMVASTATIN 20 MG TAB PO SCH (21:00)
== END 2018-12-28 11:45 | disposition home health service (06) ==
LOC: ER 10:14 → MS 13:05
PROVIDERS: ADMIT Nurse Practitioner Acute Care; ATTEND Nurse Practitioner Acute Care
DX: R55 Syncope and collapse (principal); G40.909 Epilepsy, unspecified, not intractable, without status epilepticus; E78.5 Hyperlipidemia, unspecified; K21.9 Gastro-esophageal reflux disease without esophagitis; R00.1 Bradycardia, unspecified; F03.90 Unspecified dementia, unspecified severity, without behavioral disturbance, psychotic disturbance, mood disturbance, and anxiety; S60.812A Abrasion of left wrist, initial encounter; M25.552 Pain in left hip; M25.551 Pain in right hip; I48.91 Unspecified atrial fibrillation; E07.9 Disorder of thyroid, unspecified; M47.812 Spondylosis without myelopathy or radiculopathy, cervical region; M79.642 Pain in left hand; M19.032 Primary osteoarthritis, left wrist; M85.89 Other specified disorders of bone density and structure, multiple sites; R10.2 Pelvic and perineal pain; W18.39XA Other fall on same level, initial encounter; Y93.E3 Activity, vacuuming; Y92.003 Bedroom of unspecified non-institutional (private) residence as the place of occurrence of the external cause; Z79.1 Long term (current) use of non-steroidal anti-inflammatories (NSAID); Z79.82 Long term (current) use of aspirin; Z79.899 Other long term (current) drug therapy; Z88.6 Allergy status to analgesic agent; Z90.49 Acquired absence of other specified parts of digestive tract; Z90.710 Acquired absence of both cervix and uterus; Z80.0 Family history of malignant neoplasm of digestive organs; Z80.6 Family history of leukemia
CPT/HCPCS: 96360; 96361; 96372; J7799; J1650; 82553; 80053 ×2; 36415 ×3; 81001; 85025 ×2; 82550; 83735 ×2; 84443; 80164; 84484; 83880; 83605; 71045; 72170; 73100; 73120; 73502 ×2; 70450; 72125; 94760 ×3; 93225; 99285; 93306; 93005

== ENCOUNTER → 2019-01-11 | Outpatient (CLI) | payer MEDICARE, OTHER ==
--- NOTE | 2019-01-11 16:45 | MRI ---
EXAM DESCRIPTION: Brain w/wo Contrast: Magnetic Resonance Imaging. CLINICAL HISTORY: 83 years Female SYNCOPE AND COLLAPSE COMPARISON: CT scan of the head December. TECHNIQUE: Multiplanar, high-field MRI, multiple conventional sequences, without and with gadolinium IV contrast. No adverse reactions. Multiple axial diffusion sequences. FINDINGS: Minimal hyperintense FLAIR and T2-weighted signal in the periventricular white matter of the superior tovar radiata fibers and centrum semiovale fibers bilaterally. Small foci of subcortical white matter frontal lobe signal bilaterally. Not associated with hemorrhage, edema, abnormal contrast enhancement, or diffusion restriction. Physiologic appearance of the bilateral basal ganglia. Normal signal in the brainstem and cerebellar hemispheres. No hemorrhage, no cerebral edema, no mass-effect. Normal contrast enhancement. Concordance of the diffusion and non-diffusion sequences with no evidence of acute or subacute infarction. Cortical sulci, ventricles, and other CSF spaces, and the subdural spaces are normally configured for patients age. No effacement or displacement. No midline shift. No extra-axial hemorrhage. Normal contrast enhancement. Normal flow signal void in the major vessels of the [place], and the venous sinuses. Left posterior communicating artery patent. Right vertebral artery is dominant. IACs are symmetric bilaterally. Minimal fluid in the right mastoid air cells, with left cells negative. No mass effect in the bilateral cerebellopontine angles. Normal contrast enhancement. Pituitary gland occupies most of the sella. Normal contrast enhancement. Base of the cerebellar tonsils is at the level of the foramen magnum. Mucoperiosteal thickening in the paranasal sinuses. The bony calvarium is intact. IMPRESSION: 1. Minimal periventricular white matter disease most likely related to aging or mild cerebral microvascular disease. Age-appropriate. No intra-axial extra-axial hemorrhage, no mass effect, no abnormal contrast enhancement, and no diffusion restriction. 2. Chronic paranasal sinusitis and inflammatory changes in the right mastoid air cells. Electronically signed by: Bartolo Henry MD 01/11/2019 4:43 PM MULTIFOCAL BUTTON GENERATOR
== END ==
LOC: MRI 12:49
PROVIDERS: ATTEND Family Medicine
DX: R55 Syncope and collapse (principal); J32.9 Chronic sinusitis, unspecified; R90.82 White matter disease, unspecified; H74.8X1 Other specified disorders of right middle ear and mastoid

== ENCOUNTER → 2019-06-25 | Outpatient (CLI) | payer MEDICARE, OTHER | LOC: GMA MATASK 11:35 | PROVIDERS: ATTEND Family Medicine | DX: G40.109 Localization-related (focal) (partial) symptomatic epilepsy and epileptic syndromes with simple partial seizures, not intractable, without status epilepticus (principal) ==

== ENCOUNTER → 2019-07-04 | Outpatient (CLI) | payer MEDICARE, OTHER ==
--- NOTE | 2019-07-04 08:19 | CT ---
EXAM DESCRIPTION: Abdomen/Pelvis w/wo Contrast CLINICAL HISTORY: 83 years Female, HERNIA TECHNIQUE: This exam was performed according to our departmental dose-optimization program, which includes automated exposure control, adjustment of the mA and/or kV according to patient size and/or use of iterative reconstruction technique. COMPARISON: March 25, 2019 FINDINGS: Visualized lung bases are grossly unremarkable. Benign sub-6 mm left lower lobe pulmonary nodule given long-term stability. The liver is unremarkable. No suspicious hepatic lesion. No biliary dilatation. The portal vein is patent. The gallbladder is unremarkable. The spleen, pancreas and adrenal glands are unremarkable. Bilateral renal cysts. No suspicious renal lesion. Symmetric renal parenchymal enhancement. No hydronephrosis. No urolithiasis. Unremarkable bladder. Diffuse colonic diverticulosis. No evidence of bowel obstruction or focal inflammatory change. Normal appendix. Small hiatal hernia. No adenopathy. No focal fluid collection. No free air. Normal caliber abdominal aorta. Diffuse atherosclerotic disease. Prior left lower quadrant mesh hernia repair. Small fat-containing periumbilical hernia. The hernia neck measures 1.3 cm. The hernia sac measures 1.6 x 1.3 cm. No acute or suspicious osseous abnormality. Scattered degenerative changes present. Similar L2 superior endplate chronic compression deformity. L1 vertebral body hemangioma. IMPRESSION: 1. Prior left lower quadrant mesh hernia repair. 2. Small fat-containing umbilical hernia. 3. No evidence of acute process in the abdomen or pelvis. Electronically signed by: Ray Montano MD 07/04/2019 8:17 AM CDT
== END ==
LOC: CT 08:00
PROVIDERS: ATTEND Family Medicine
DX: K42.9 Umbilical hernia without obstruction or gangrene (principal); Z96.89 Presence of other specified functional implants

== ENCOUNTER → 2019-10-25 | Outpatient (CLI) | payer MEDICARE, OTHER | LOC: GMA MATASK 10:37 | PROVIDERS: ATTEND Family Medicine | DX: I10 Essential (primary) hypertension (principal) ==

== ENCOUNTER → 2020-01-28 | Outpatient (CLI) | payer MEDICARE, OTHER | LOC: GMA MATASK 14:30 | PROVIDERS: ATTEND Family Medicine | DX: G40.109 Localization-related (focal) (partial) symptomatic epilepsy and epileptic syndromes with simple partial seizures, not intractable, without status epilepticus (principal) ==